=== PATIENT | female | born 1960 | race Two or more races ===

== ENCOUNTER 2019-05-02 08:15 | Emergency (ER) | payer BC ==
[2019-05-02] MEDS ORDERED: HYDROmorphone 1 MG/ML Syringe IVPUSH ONE (08:39)
[2019-05-02] MEDS ORDERED: Ondansetron 4 MG/2 ML SDV IVPUSH ONE (08:39)
--- NOTE | 2019-05-02 08:44 | EDM.PDOC ---
ED HPI GENERAL MEDICAL PROBLEM - General Chief Complaint: Upper Extremity Injury/Pain Stated Complaint: SLIPPED ON THE ICE Time Seen by Provider: 05/02/19 08:27 - History of Present Illness INITIAL COMMENTS - FREE TEXT/NARRATIVE: HISTORY AND PHYSICAL: History of present illness: Patient is a 58-year-old female who presents after slipping on the ice and falling onto her left wrist and complains of pain only in this area. She did not hit her head pass out or blackout and has no head neck or back pain and prior to these events she was in her usual state of good health. She said she was not dizzy or lightheaded but just lost her footing and slipped. She is right-hand dominant and has no right upper extremity or any lower extremity complaints. She has no proximal left forearm elbow or shoulder pain and no hand pain or finger pain and only pain at the wrist. She received fentanyl in route and is still complaining of pain. She has no numbness or tingling in her fingers but does not want to move them very much. Review of systems: As per history of present illness and below otherwise all systems reviewed and negative. Past medical history: As per history of present illness and as reviewed below otherwise noncontributory. Surgical history: As per history of present illness and as reviewed below otherwise noncontributory. Social history: No reported history of drug or alcohol abuse. Family history: As per history of present illness and as reviewed below otherwise noncontributory. Physical exam: general: Well-developed well-nourished female who is uncomfortable and crying and screaming in the ED but vital signs are noted by me HEENT: Atraumatic, normocephalic, pupils reactive, negative for conjunctival pallor or scleral icterus, mucous membranes moist, throat clear, neck supple, nontender, trachea midline. No midline step-offs tenderness defects of the cervical spine Lungs: Clear to auscultation, breath sounds equal bilaterally, chest nontender. Heart: S1S2, regular no overt murmurs Abdomen: Soft, nondistended, nontender. Negative for masses or hepatosplenomegaly. Negative for costovertebral tenderness. Pelvis: Stable nontender. Genitourinary: Deferred. Rectal: Deferred. Extremities: Atraumatic full range of motion of all extremities with the exception of the left wrist where there is a slight angulation in the dorsal direction but no gross malalignment and there is swelling and soft tissue changes at the wrist but there is no proximal forearm elbow shoulder or humerus pain discomfort defects or deformities and no distal hand or digit defects or deformities. Pulses are palpable and capillary refill is normal. With any manipulation of the wrist the patient is very uncomfortable. The legs are, negative for cords or calf pain. Neurovascular unremarkable. Neuro: Awake, alert, oriented. Cranial nerves II through XII unremarkable. Cerebellum unremarkable. Motor and sensory unremarkable throughout. Exam nonfocal. Diagnostics: X-ray left wrist Therapeutics: dilaudid Zofran short arm post mold and sling 0950: Dr Burden from [facility] in [facility] for orthopedics was contacted as we do not have orthopedic surgery for over 24 hours and that the x-rays were discussed with him. He feels that a short arm post mold and follow-up in his clinic is appropriate and I discussed that with the patient. She says she is not sure if she can go to [facility] tomorrow so we will also put her on our follow-up. Impression: Comminuted angulated distal radial fracture with ulnar styloid fracture Definitive disposition and diagnosis as appropriate pending reevaluation and review of above. left wrist Pain Score (Numeric/FACES): 10 - Related Data Allergies Allergy/AdvReac Type Severity Reaction Status Date / Time No Known Allergies Allergy Verified 05/02/19 08:26 Home Meds: Home Meds Lisinopril [Zestril] 05/02/19 [History] Past Medical History Cardiovascular History: Reports: Hypertension - Infectious Disease History Infectious Disease History: Reports: None Social & Family History - Family History Family Medical History: Noncontributory - Tobacco Use Smoking Status *Q: Never Smoker - Recreational Drug Use Recreational Drug Use: No Review of Systems - Review of Systems Review Of Systems: Comprehensive ROS is negative, except as noted in HPI. ED EXAM, GENERAL - Physical Exam Exam: See Below (see Dictation) Course - Vital Signs Last Recorded V/S: Last Vital Signs Temp 36.1 C 05/02/19 08:15 Pulse 79 05/02/19 08:15 Resp 18 05/02/19 08:15 BP 136/90 05/02/19 08:15 Pulse Ox 98 05/02/19 08:15 - Orders/Labs/Meds Orders: Active Orders 24 hr Category Date Time Status DME for Discharge [COMM] Stat Oth 05/02/19 09:59 Ordered Meds: Medications Discontinued Medications Generic Name Dose Route Start Last Admin Trade Name Pia PRN Reason Stop Dose Admin Hydromorphone HCl 1 mg 05/02/19 08:39 05/02/19 08:52 Dilaudid IVPUSH 05/02/19 08:40 1 mg ONETIME ONE Administration Ondansetron HCl 4 mg 05/02/19 08:39 05/02/19 08:53 Zofran IVPUSH 05/02/19 08:40 4 mg ONETIME ONE Administration Departure - Departure Time of Disposition: 10:01 Disposition: Home, Self-Care 01 Condition: Good Clinical Impression: Closed fracture of radius Qualifiers: Encounter type: initial encounter Radius location: distal Fracture morphology: unspecified fracture morphology Laterality: left Qualified Code(s): S52.502A - Unspecified fracture of the lower end of left radius, initial encounter for closed fracture - Discharge Information Referrals: PCP,Unobtain [Primary Care Provider] - Forms: ED Department Discharge Additional Instructions: The following information is given to patients seen in the emergency department who are being discharged to home. This information is to outline your options for follow-up care. We provide all patients seen in our emergency department with a follow-up referral. The need for follow-up, as well as the timing and circumstances, are variable depending upon the specifics of your emergency department visit. If you don't have a primary care physician on staff, we will provide you with a referral. We always advise you to contact your personal physician following an emergency department visit to inform them of the circumstance of the visit and for follow-up with them and/or the need for any referrals to a consulting specialist. The emergency department will also refer you to a specialist when appropriate. This referral assures that you have the opportunity for followup care with a specialist. All of these measure are taken in an effort to provide you with optimal care, which includes your followup. Under all circumstances we always encourage you to contact your private physician who remains a resource for coordinating your care. When calling for followup care, please make the office aware that this follow-up is from your recent emergency room visit. If for any reason you are refused follow-up, please contact the [facility] emergency department at and ask to speak to the emergency department charge nurse. MAURICIO Ames [facility] Specialty Care - Orthopedic Clinic Professional Building [address] [place] [address], [address] [place] [address] [facility] [address] [place] [address] Please follow-up with Dr. Burden [facility] in the orthopedics clinic as we discussed and leave the splint on until followed up tomorrow. Please call the clinic first thing in the morning to make that appointment and if you absolutely cannot make it to [facility] please call our clinic and schedule a follow-up appointment on Friday. Return to ER as needed and as discussed and please fill prescription for pain medications and take as needed and directed. Ice and elevate the area Sepsis Event Note - Evaluation Sepsis Screening Result: No Definite Risk - Focused Exam Vital Signs: Vital Signs Temp Pulse Resp BP Pulse Ox 05/02/19 08:15 36.1 C 79 18 136/90 98 Date Exam was Performed: 05/02/19 Time Exam was Performed: 09:59 - My Orders Last 24 Hours: My Active Orders 05/02/19 09:59 DME for Discharge [COMM] Stat - Assessment/Plan Last 24 Hours: My Active Orders 05/02/19 09:59 DME for Discharge [COMM] Stat
--- NOTE | 2019-05-02 09:00 | CR ---
Left wrist: 2 views of the left wrist were obtained. Comparison: No previous wrist study. Distal radial fracture is seen which is mildly comminuted. Posterior impaction and dorsal tilt of the distal radial articular margin is seen. Additional vertical fracture fragment seen within the epiphyseal fragment with articular extension. Slightly displaced ulnar styloid avulsion fracture is noted. Soft tissue swelling is seen. Impression: 1. Displaced and angulated distal radial fracture with mild comminution and articular extension. 2. Ulnar styloid avulsion fracture. 3. Soft tissue swelling. Diagnostic code #3 This report was dictated in Mountain Standard Time
== END 2019-05-02 10:22 | disposition home or self-care (01) ==
LOC: MW.ED 08:15
DX: S52.612A Displaced fracture of left ulna styloid process, initial encounter for closed fracture (principal); S52.502A Unspecified fracture of the lower end of left radius, initial encounter for closed fracture; I10 Essential (primary) hypertension; W00.0XXA Fall on same level due to ice and snow, initial encounter
CPT/HCPCS: 29125; 73110; 96374; 96375; 99284; J1170; J2405

== ENCOUNTER 2019-05-03 13:19 | Emergency (ER) | payer BC ==
--- NOTE | 2019-05-03 15:43 | EDM.PDOC ---
ED HPI GENERAL MEDICAL PROBLEM - General Chief Complaint: General Stated Complaint: LEFT WRIST BROKEN Time Seen by Provider: 05/03/19 15:10 Source of Information: Reports: Patient History Limitations: Reports: No Limitations - History of Present Illness INITIAL COMMENTS - FREE TEXT/NARRATIVE: HISTORY AND PHYSICAL: History of present illness: Patient is a 58-year-old female who presents to the ED today with concern of pain management. Patient was seen and evaluated in the ED yesterday and did have a angulated radial fracture. Patient states she did call and get an appointment with orthopedic but it is tomorrow morning at 8 in the morning. Patient states that she was given [place] 7.5/325 and has been taking these every 3-4 hours and not having her pain controlled. Patient denies any new trauma or injury or any other symptoms or concerns. Patient denies fever, chills, chest pain, shortness of breath, or cough. Denies headache, neck stiff ness, change in vision, syncope, or near syncope. Denies nausea, vomiting, abdominal pain, diarrhea, constipation, or dysuria. Has not noted any blood in urine or stool. Patient has been eating and drinking appropriately. Review of systems: As per history of present illness and below otherwise all systems reviewed and negative. Past medical history: As per history of present illness and as reviewed below otherwise noncontributory. Surgical history: As per history of present illness and as reviewed below otherwise noncontributory. Social history: See social history for further information Family history: As per history of present illness and as reviewed below otherwise noncontributory. Physical exam: General: Patient is alert, oriented, and in no acute distress. Patient sitting comfortably on exam table. HEENT: Atraumatic, normocephalic, pupils equal and reactive bilaterally, negative for conjunctival pallor or scleral icterus, mucous membranes moist, TMs normal bilaterally, throat clear, neck supple, nontender, trachea midline. No drooling or trismus noted. No meningeal signs. No hot potato voice noted. Lungs: Clear to auscultation, breath sounds equal bilaterally, chest nontender. Heart: S1S2, regular rate and rhythm without overt murmur Abdomen: Soft, nondistended, nontender. Negative for masses or hepatosplenomegaly. Negative for costovertebral tenderness. Pelvis: Stable nontender. Genitourinary: Deferred. Rectal: Deferred. Skin: Intact, warm, dry. No lesions or rashes noted. Extremities: Atraumatic, negative for cords or calf pain. Neurovascular unremarkable. There is a short arm splint placed on the left arm with arm in sling. Neuro: Awake, alert, oriented. Cranial nerves II through XII unremarkable. Cerebellum unremarkable. Motor and sensory unremarkable throughout. Exam nonfocal. Notes: Dr. Mckeon verbally involved in patient care. Discussed importance for follow-up with the orthopedic provider. Voices understanding and is agreeable to plan of care. Denies any further questions or concerns at this time. Diagnostics: None Therapeutics: None Prescription: [place] 10/325 (#10) Impression: Encounter for pain management Closed fracture of radius, left, subsequent encounter Plan: 1. Take medication as prescribed. Follow-up with the orthopedic provider as scheduled and as discussed. 2. Return to the ED as needed and as discussed. Definitive disposition and diagnosis as appropriate pending reevaluation and review of above. Left Wrist Pain Score (Numeric/FACES): 9 - Related Data Allergies Allergy/AdvReac Type Severity Reaction Status Date / Time No Known Allergies Allergy Verified 05/02/19 08:26 Home Meds: Home Meds Lisinopril [Zestril] 5 mg PO ASDIRECTED 05/02/19 [History] Acetaminophen/HYDROcodone [[place] 325-10 MG] 1 tab PO Q6H PRN #10 tab 05/03/19 [ Rx] Acetaminophen/HYDROcodone [[place] 325-7.5 MG] 1 tab PO Q4H PRN 05/03/19 [History] Past Medical History Cardiovascular History: Reports: Hypertension Musculoskeletal History: Reports: Fracture - Infectious Disease History Infectious Disease History: Reports: None Social & Family History - Family History Family Medical History: Noncontributory - Tobacco Use Smoking Status *Q: Never Smoker Second Hand Smoke Exposure: No - Caffeine Use Caffeine Use: Reports: None - Recreational Drug Use Recreational Drug Use: No ED ROS GENERAL - Review of Systems Review Of Systems: Comprehensive ROS is negative, except as noted in HPI. ED EXAM, GENERAL - Physical Exam Exam: See Below (see dictaton) Course - Vital Signs Last Recorded V/S: Last Vital Signs Temp 97.2 F 05/03/19 14:03 Pulse 68 01/27/20 14:03 Resp 16 05/03/19 14:03 BP 138/91 H 05/03/19 14:03 Pulse Ox 97 05/03/19 14:03 Departure - Departure Time of Disposition: 15:39 Disposition: Home, Self-Care 01 Clinical Impression: Encounter for pain management Closed fracture of radius Qualifiers: Encounter type: subsequent encounter Radius location: distal Fracture morphology: unspecified fracture morphology Laterality: left Fracture healing: with routine healing Qualified Code(s): S52.502D - Unspecified fracture of the lower end of left radius, subsequent encounter for closed fracture with routine healing - Discharge Information Prescriptions: Acetaminophen/HYDROcodone [[place] 325-10 MG] 1 tab PO Q6H PRN #10 tab PRN Reason: Pain (Severe 7-10) Referrals: PCP,None [Primary Care Provider] - Additional Instructions: The following information is given to patients seen in the emergency department who are being discharged to home. This information is to outline your options for follow-up care. We provide all patients seen in our emergency department with a follow-up referral. The need for follow-up, as well as the timing and circumstances, are variable depending upon the specifics of your emergency department visit. If you don't have a primary care physician on staff, we will provide you with a referral. We always advise you to contact your personal physician following an emergency department visit to inform them of the circumstance of the visit and for follow-up with them and/or the need for any referrals to a consulting specialist. The emergency department will also refer you to a specialist when appropriate. This referral assures that you have the opportunity for follow-up care with a specialist. All of these measure are taken in an effort to provide you with optimal care, which includes your follow-up. Under all circumstances we always encourage you to contact your private physician who remains a resource for coordinating your care. When calling for follow-up care, please make the office aware that this follow-up is from your recent emergency room visit. If for any reason you are refused follow-up, please contact the [facility] Emergency Department at and asked to speak to the emergency department charge nurse. [facility] Primary Care [address] [place] [id number] [facility] [address] [place] [address] 1. Take medication as prescribed. Follow-up with the orthopedic provider as scheduled and as discussed. 2. Return to the ED as needed and as discussed. Sepsis Event Note - Evaluation Sepsis Screening Result: No Definite Risk - Focused Exam Vital Signs: Vital Signs Temp Pulse Resp BP Pulse Ox 05/03/19 14:03 97.2 F 68 16 138/91 H 97 Date Exam was Performed: 05/03/19 Time Exam was Performed: 15:38
== END 2019-05-03 15:51 | disposition home or self-care (01) ==
LOC: MW.ED 13:19
DX: S52.502A Unspecified fracture of the lower end of left radius, initial encounter for closed fracture (principal); I10 Essential (primary) hypertension; Z79.899 Other long term (current) drug therapy; X58.XXXA Exposure to other specified factors, initial encounter
CPT/HCPCS: 99282; 99283

== ENCOUNTER 2019-05-05 09:51 | Day surgery (SDC) | payer BC ==
--- NOTE | 2019-05-05 10:49 | PCM.PREANE ---
Preanesthetic Assessment - Anesthesia/Transfusion/Family Hx Anesthesia History: Prior Anesthesia Without Reaction Family History of Anesthesia Reaction: No Transfusion History: No Prior Transfusion(s) - Review of Systems General: No Symptoms Pulmonary: No Symptoms Cardiovascular: No Symptoms Gastrointestinal: No Symptoms Neurological: No Symptoms Other: Reports: None - Physical Assessment NPO Status Date: 05/04/19 Height: 5 ft 1 in Weight: 75.75 kg ASA Class: 2 Mental Status: Alert & Oriented x3 Airway Class: Mallampati = 2 Dentition: Reports: Dentures (upper, full) ROM/Head Extension: Full Lungs: Clear to Auscultation, Normal Respiratory Effort Cardiovascular: Regular Rate, Regular Rhythm - Allergies Allergies/Adverse Reactions: Allergies Allergy/AdvReac Type Severity Reaction Status Date / Time No Known Allergies Allergy Verified 05/04/19 17:22 - Blood Blood Available: No - Anesthesia Plan Pre-Op Medication Ordered: None - Acknowledgements Anesthesia Type Planned: General Anesthesia Pt an Appropriate Candidate for the Planned Anesthesia: Yes Alternatives and Risks of Anesthesia Discussed w Pt/Guardian: Yes Pt/Guardian Understands and Agrees with Anesthesia Plan: Yes Additional Comments: pmh: htn, plan: ga/LMA PreAnesthesia Questionnaire HEENT History: Reports: Other (See Below) Other HEENT History: uses glasses for driving Cardiovascular 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: Reports: Hypertension 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: Musculoskeletal History: Reports: Fracture Endocrine/Metabolic History: Reports: Obesity/BMI 30+ - Infectious Disease History Infectious Disease History: Reports: None - Past Surgical History Head Surgeries/Procedures: Reports: None HEENT Surgical History: Reports: Oral Surgery Other HEENT Surgeries/Procedures: has 1 upper dental implant - SUBSTANCE USE Smoking Status *Q: Never Smoker Recreational Drug Use History: No - HOME MEDS Home Medications: Home Meds Lisinopril [Zestril] 10 mg PO QAM 05/02/19 [History] oxyCODONE HCl/Acetaminophen [Percocet 5-325 mg Tablet] 1 each PO TID #21 tablet 05/05/19 [Rx]
[2019-05-05] MEDS: fentaNYL 100 MCG/2 ML SDV IVPUSH PRN ×4 (10:57→16:14)
[2019-05-05] MEDS ORDERED: Lactated Ringers 1,000 ML IV SCH ×2 (11:45→18:15)
[2019-05-05] MEDS ORDERED: Midazolam 1 MG/ML 2 ML SDV ONE (12:56)
[2019-05-05] MEDS ORDERED: Propofol 200 MG/20 ML SDV ONE (12:56)
[2019-05-05] MEDS ORDERED: fentaNYL 100 MCG/2 ML SDV ONE (12:56)
[2019-05-05] MEDS ORDERED: Ondansetron 4 MG/2 ML SDV ONE (12:58)
[2019-05-05] MEDS ORDERED: Glycopyrrolate 0.2 MG/ML SDV ONE (12:58)
[2019-05-05] MEDS ORDERED: Lidocaine 2% 5 ML SDV ONE (12:58)
[2019-05-05] MEDS ORDERED: Ketorolac 30 MG/ML SDV ONE (12:58)
[2019-05-05] MEDS ORDERED: ceFAZolin 1 GM Vial ONE (13:37)
[2019-05-05] MEDS ORDERED: Bupivacaine 0.5% 30 ML SDV ONE (14:12)
[2019-05-05] MEDS ORDERED: Phenylephrine/Normal Saline 100 MCG/ML 10 ML Syringe ONE (15:05)
--- NOTE | 2019-05-05 15:18 | PCM.OPNOTE ---
- General Post-Op/Procedure Note Date of Surgery/Procedure: 05/05/19 Operative Procedure(s): orif left distal radius Pre Op Diagnosis: left distal radius fracture closed Post-Op Diagnosis: Same Anesthesia Technique: General LMA Primary Surgeon: Stewart Best Anesthesia Provider: Star Overton Rayon Winder: Caryl Cho EBL in mLs: 25 Complications: None Condition: Good
[2019-05-05] MEDS: HYDROmorphone 2 MG/ML Syringe IVPUSH ONE ×5 (15:56→16:27)
--- NOTE | 2019-05-05 16:54 | PCM.POSTAN ---
POST ANESTHESIA ASSESSMENT - MENTAL STATUS Mental Status: Alert, Oriented - VITAL SIGNS Vital Signs: Last Vital Signs Temp 97.9 F 05/05/19 15:39 Pulse 62 05/05/19 16:29 Resp 13 05/05/19 16:29 BP 139/72 05/05/19 16:29 Pulse Ox 100 05/05/19 16:29 - RESPIRATORY Respiratory Status: Respiratory Rate WNL, Airway Patent, O2 Saturation Stable - CARDIOVASCULAR CV Status: Pulse Rate WNL, Blood Pressure Stable - GASTROINTESTINAL GI Status: No Symptoms - POST OP HYDRATION Hydration Status: Adequate & Stable
--- NOTE | 2019-05-05 17:59 | PCM48HPAN ---
Post Anesthesia Note - EVALUATION WITHIN 48HRS OF ANESTHETIC Vital Signs in Normal Range: Yes Patient Participated in Evaluation: Yes Respiratory Function Stable: Yes Airway Patent: Yes Cardiovascular Function Stable: Yes Hydration Status Stable: Yes Pain Control Satisfactory: Yes Nausea and Vomiting Control Satisfactory: Yes Mental Status Recovered: Yes Vital Signs: Last Vital Signs Temp 36.1 C 05/05/19 16:45 Pulse 76 05/05/19 17:00 Resp 14 05/05/19 17:00 BP 154/76 H 05/05/19 17:00 Pulse Ox 100 05/05/19 17:00 - COMMENTS/OBSERVATIONS Free Text/Narrative:: Received report from Elzbieta the patient's phase 2 RN. That the patient had sats around 90%. We will observe the patient for 23 hours with continuous pulse oximetry. This was discussed with the patient and the patient's surgeon is aware.
--- NOTE | 2019-05-05 18:42 | OR ---
SURGEON: Stewart Best DATE OF PROCEDURE: 05/05/2019 PREOPERATIVE DIAGNOSIS: Left distal radius fracture, closed. POSTOPERATIVE DIAGNOSIS: Left distal radius fracture, closed. PROCEDURES: 1. Open reduction and internal fixation, left distal radius. 2. Application of short-arm splint. PRIMARY SURGEON: Stewart Best DO. RESTORATION TECHNICIAN: ILANA Pruitt. ROLE OF RESTORATION TECHNICIAN: Nurse practitioner, ILANA Pruitt, played an essential role in assisting in this case, helping to position the patient, retract structures as needed, as well as suturing and cutting sutures as indicated. Her presence improved patient's safety and decreased operative time. ANESTHESIA: General LMA; Star Hoang CRNA. FLUID: Lactated Ringer's solution. ESTIMATED BLOOD LOSS: 20 mL. COMPLICATION: None. SPECIMEN: None. DISCHARGE DISPOSITION: Stable to PACU. HISTORY AND INDICATIONS FOR THE PROCEDURE: The patient was seen preoperatively in the clinic. She had fallen on her outstretched hand. She was seen in the emergency department and then followed up in clinic. We are going to do a short-arm splint. Preoperative imaging confirmed the above-mentioned diagnosis. Risks and goals of the procedure were explained to the patient and informed consent was obtained. DETAILS OF PROCEDURE: The patient was seen preoperatively by myself and the Anesthesia staff in the preoperative holding area where the operative site was marked. She was brought to the operative suite by Anesthesia staff where general anesthesia was administered. A well-padded tourniquet was placed on the left arm. The left upper extremity was then prepped and draped in a sterile manner. Time-out was called identifying the correct patient, the correct procedure, the correct site, and that antibiotics had been given within appropriate period of time. The left upper extremity was exsanguinated. Tourniquet was raised to 200 mmHg. An incision was made over the flexor carpi radialis tendon just proximal to 3rd distal, the joint extending proximally about 12 cm. Bleeding was controlled with Bovie electrocautery. The FCR tendon was identified. I went through the volar sheath with a 15 blade, moved the tendon radially to protect the radial artery, and then went through the volar aspect of the sheath. The pronator was then identified. I went through the radial border of the pronator and reflected it and elevated it off the radius. I then reduced the fracture. I did use a [place] to do this. This was done quite easily and then confirmed with fluoroscopy. K-wire additionally placed through the shaft. I then placed my plate on it. I placed two K-wires through the plate and then confirmed this was in good position with fluoroscopy. I then went through the oval hole and then one of the distal holes to bring the distal radius down to the plate. I then put these screws and confirmed good position. I then drilled and filled the remainder of most of the screws, except I did replace the second most ulnar one on the distal row as it looked like it might be close to the joint and then one on the most ulnar one. I then took final films, copiously irrigated with saline, and then had my assist close subcutaneously with 2-0 Vicryl interrupted sutures followed by 3-0 nylon horizontal mattress sutures and then dressed it with Betadine soaked Adaptic, fluffs, Webril, and a volar splint. The patient was allowed to awaken from general anesthesia and taken to the PACU in stable condition. [id number] / MODL /[id number]
[2019-05-05] MEDS: Acetaminophen/oxyCODONE 325-5 MG Tab PO PRN (20:06)
[2019-05-06] MEDS: Acetaminophen/oxyCODONE 325-5 MG Tab PO PRN (01:30)
[2019-05-06] MEDS ORDERED: hydrOXYzine Pamoate 25 MG Cap PO ONE (01:33)
[2019-05-06] MEDS ORDERED: Acetaminophen/HYDROcodone 325-10 MG Tab PO ONE (06:59)
--- NOTE | 2019-05-06 07:28 | PCM48HPAN ---
Post Anesthesia Note - EVALUATION WITHIN 48HRS OF ANESTHETIC Vital Signs in Normal Range: Yes Patient Participated in Evaluation: Yes Respiratory Function Stable: Yes Airway Patent: Yes Cardiovascular Function Stable: Yes Hydration Status Stable: Yes Pain Control Satisfactory: No Nausea and Vomiting Control Satisfactory: Yes Mental Status Recovered: Yes Vital Signs: Last Vital Signs Temp 36.6 C 05/06/19 04:00 Pulse 72 05/06/19 04:00 Resp 19 05/06/19 04:00 BP 155/84 H 05/06/19 04:00 Pulse Ox 93 L 05/06/19 04:00 - COMMENTS/OBSERVATIONS Free Text/Narrative:: I was informed by the patient's RN that she has been complaining of pain, and the patient mentioned that PERCOCET medications do not help. After I received report from the Nurse, I observed the patient prior to entering the room. She was on the phone talking, and there were no physical signs of pain such as grimacing, moaning, holding her left arm. Once, I entered the room and greeted her she immediately starting moaning and holding her left arm complaining of pain. The patient states that percocet does not control her pain , but [place] works better. I explained to the Nurses that there are some people who are poor metabolizers of certain pain medications and due to this fact I recommended po Toradol for pain control or [place]. The Nurse stated that she would discuss these options with Dr. Roshni Best
[2019-05-06] MEDS ORDERED: Acetaminophen/HYDROcodone 325-10 MG Tab PO PRN (08:56)
[2019-05-06] MEDS ORDERED: Ibuprofen 800 MG Tab PO PRN (08:56)
--- NOTE | 2019-05-06 09:46 | PCM.SURGPN ---
- General Info Date of Service: 05/06/19 (0845) Date of Surgery/Procedure: 05/05/19 POD#: 1 Post-Op Diagnosis: s/p Left wrist ORIF Admission Diagnosis/Problem: Pain in wrist Functional Status: Reports: Pain Controlled (Reports pain is better during examination than it was last night, better after receiving [place] ), Tolerating Diet, Urinating - Review of Systems General: Reports: No Symptoms Pulmonary: Reports: No Symptoms Cardiovascular: Reports: No Symptoms Gastrointestinal: Denies: Nausea, Vomiting Musculoskeletal: Reports: Joint Pain (acute post-surgical left wrist pain) Neurological: Reports: No Symptoms Psychiatric: Reports: No Symptoms - Patient Data Vitals - Most Recent: Last Vital Signs Temp 36.4 C 05/06/19 07:46 Pulse 79 05/06/19 07:46 Resp 20 05/06/19 07:46 BP 147/94 H 05/06/19 07:46 Pulse Ox 98 05/06/19 07:46 Weight - Most Recent: 75.75 kg I&O - Last 24 Hours: Intake & Output 05/05/19 05/06/19 05/06/19 22:59 06:59 14:59 Intake Total 1200 1275 Output Total 1000 Balance 1200 275 Med Orders - Current: Current Medications Hydrocodone Bitart/Acetaminophen ([place] 325-10 Mg) 1 tab PO Q6H PRN PRN Reason: Pain Lactated Ringer's (Ringers, Lactated) 1,000 mls @ 75 mls/hr IV ASDIRECTED LUC Last Admin: 05/05/19 22:27 Dose: 75 mls/hr Ibuprofen (Motrin) 800 mg PO Q6H PRN PRN Reason: Pain Last Admin: 05/06/19 09:29 Dose: 800 mg Discontinued Medications Hydrocodone Bitart/Acetaminophen ([place] 325-10 Mg) 1 tab PO ONETIME ONE Stop: 05/06/19 07:00 Last Admin: 05/06/19 07:18 Dose: 1 tab Bupivacaine HCl (Marcaine 0.5%) Confirm Administered Dose 30 ml .ROUTE .STK-MED ONE Stop: 05/05/19 14:13 Cefazolin Sodium (Ancef) Confirm Administered Dose 2 gm .ROUTE .STK-MED ONE Stop: 05/05/19 13:38 Fentanyl (Sublimaze) 50 mcg IVPUSH Q5M PRN PRN Reason: Pain Last Admin: 05/05/19 14:10 Dose: 50 mcg Fentanyl (Sublimaze) Confirm Administered Dose 100 mcg .ROUTE .STK-MED ONE Stop: 05/05/19 12:57 Fentanyl (Sublimaze) 50 mcg IVPUSH Q5M PRN PRN Reason: Pain Last Admin: 05/05/19 16:14 Dose: 50 mcg Glycopyrrolate (Robinul) Confirm Administered Dose 0.2 mg .ROUTE .STK-MED ONE Stop: 05/05/19 12:59 Hydromorphone HCl (Dilaudid) 2 mg IVPUSH ONETIME ONE Stop: 05/05/19 15:53 Last Admin: 05/05/19 16:27 Dose: 0.4 mg Hydroxyzine Pamoate (Vistaril) 25 mg PO ONETIME ONE Stop: 05/06/19 01:34 Last Admin: 05/06/19 01:50 Dose: 25 mg Lactated Ringer's (Ringers, Lactated) 1,000 mls @ 125 mls/hr IV ASDIRECTED LUC Last Admin: 05/05/19 10:28 Dose: 125 mls/hr Ketorolac Tromethamine (Toradol) Confirm Administered Dose 30 mg .ROUTE .STK- MED ONE Stop: 05/05/19 12:59 Lidocaine (Xylocaine-Mpf 2%) Confirm Administered Dose 5 ml .ROUTE .STK-MED ONE Stop: 05/05/19 12:59 Midazolam HCl (Versed 1 Mg/Ml) Confirm Administered Dose 2 mg .ROUTE .STK-MED ONE Stop: 05/05/19 12:57 Ondansetron HCl (Zofran) Confirm Administered Dose 4 mg .ROUTE .STK-MED ONE Stop: 05/05/19 12:59 Oxycodone/Acetaminophen (Percocet 325-5 Mg) 1 tab PO Q6H PRN PRN Reason: Pain Last Admin: 05/06/19 01:30 Dose: 1 tab Phenylephrine HCl (Phenylephrine In Ns 100 Mcg/Ml) Confirm Administered Dose 1 mg .ROUTE .STK-MED ONE Stop: 05/05/19 15:06 Propofol (Diprivan 20 Ml) Confirm Administered Dose 200 mg .ROUTE .STK-MED ONE Stop: 05/05/19 12:57 - Exam Wound/Incisions: Dressing Dry and Intact General: Alert, Oriented, Cooperative HEENT: Pupils Equal Lungs: Normal Respiratory Effort Extremities: Other (Capillary refill to fingers >2 seconds. Fingers warm to touch. Sensation grossly intact to fingers. Actively wiggling fingers. ) Neurological: Normal Speech Psy/Mental Status: Alert, Normal Affect, Normal Mood Physical Findings Comment:: splint intact to left wrist Sepsis Event Note - Evaluation Sepsis Screening Result: No Definite Risk - Focused Exam Vital Signs: Vital Signs Temp Pulse Resp BP BP Pulse Ox 05/06/19 07:46 36.4 C 79 20 147/94 H 98 05/06/19 04:00 36.6 C 72 19 155/84 H 93 L 05/06/19 00:00 36.6 C 67 16 106/72 96 05/05/19 23:30 65 117/68 96 05/05/19 23:00 65 17 113/70 97 05/05/19 22:30 64 117/71 95 05/05/19 22:00 63 16 120/67 95 Date Exam was Performed: 05/06/19 Time Exam was Performed: 09:40 - Problem List Review Problem List Initiated/Reviewed/Updated: Yes - My Orders Last 24 Hours: Active Orders 24 hr Category Date Time Status Admission Status [Patient Status] [ADT] Routine ADT 05/05/19 18:00 Active Antiembolic Devices [RC] PER UNIT ROUTINE Care 05/05/19 18:10 Active Cooling Warming Measures [RC] ASDIRECTED Care 05/05/19 18:10 Active Overnight Pulse Oximetry [RC] Click to Edit Care 05/05/19 18:10 Active Oxygen Therapy [RC] ASDIRECTED Care 05/05/19 18:07 Active RT Incentive Spirometry [RC] Q2HWA Care 05/05/19 18:07 Active Ready for Discharge [RC] PER UNIT ROUTINE Care 05/05/19 15:38 Active Regular Diet [DIET] Diet 05/05/19 Dinner Active Acetaminophen/HYDROcodone [[place] 325-10 MG] Med 05/06/19 08:56 Active 1 tab PO Q6H PRN Ibuprofen [Motrin] Med 05/06/19 08:56 Active 800 mg PO Q6H PRN Lactated Ringers [Ringers, Lactated] 1,000 ml Med 05/05/19 18:15 Active IV ASDIRECTED Ice Therapy [OM.PC] Routine Oth 05/05/19 18:07 Ordered Pulse Oximetry Continuous Monitoring [OM.PC] Routine Oth 05/05/19 18:07 Ordered Sequential Compression Device [OM.PC] Routine Oth 05/05/19 18:07 Ordered Code Status [Resuscitation Status] Routine Resus Stat 05/05/19 18:07 Ordered Medication Orders Hydrocodone Bitart/Acetaminophen ([place] 325-10 Mg) 1 tab PO Q6H PRN PRN Reason: Pain Lactated Ringer's (Ringers, Lactated) 1,000 mls @ 75 mls/hr IV ASDIRECTED LUC Last Admin: 05/05/19 22:27 Dose: 75 mls/hr Ibuprofen (Motrin) 800 mg PO Q6H PRN PRN Reason: Pain Last Admin: 05/06/19 09:29 Dose: 800 mg - Assessment Assessment (Free Text/Narrative):: 1) s/p Left wrist ORIF 2) acute post-surgical pain 3) low O2 sats in PACU (resolved) - Plan Plan (Free Text/Narrative):: Pt admitted overnight for observation d/t low O2 sats (averaging 90% in PACU). VS with O2 sats >90% overnight. Additionally, she had acute pain not controlled with Percocet 5/325mg. When visiting with pt, she states she received better pain control with hydrocodone/acetaminophen, and showed me a bottle that she received from ER visit. Just prior to assessment, she received [place] and states her pain is tolerable. Will change Rx from Percocet to [place], and add Ibuprofen 800mg q6h prn. Neurovascular exam WNL. Discussed need to diligently elevate extremity to minimize swelling. She inquired about when she could return to work. Note written for no work until follow up appt in visit in 2 weeks. Magdalena will be ready for discharge today.
== END 2019-05-06 10:35 | disposition home or self-care (01) ==
LOC: MW.SDS 09:51 → MW.ICU 17:48 → MW.SDS 05-06 10:35
PROVIDERS: ATTEND Orthopaedic Surgery
DX: S52.502A Unspecified fracture of the lower end of left radius, initial encounter for closed fracture (principal); I10 Essential (primary) hypertension; E66.9 Obesity, unspecified; Z68.31 Body mass index [BMI] 31.0-31.9, adult; W00.0XXA Fall on same level due to ice and snow, initial encounter; Z79.899 Other long term (current) drug therapy
CPT/HCPCS: 25607; A9270; J0690; J1170; J1885; J2001; J2250; J2370; J2405; J2704; J3010; J3490; J7120; 01830

== ENCOUNTER 2021-01-21 20:52 | Inpatient (IN) | payer SELFPAY ==
--- NOTE | 2021-01-21 23:24 | CR ---
HISTORY: Cough. COVID infection. TECHNIQUE: Portable frontal view the chest. COMPARISON: Chest x-ray 06/30/2019. FINDINGS: Mild atelectasis in the lower lungs bilaterally. Mild patchy airspace consolidation bilaterally. No moderate or large pleural effusion. No pneumothorax. Cardiomediastinal silhouette is unremarkable for technique. IMPRESSION: Multifocal bilateral airspace disease likely from pneumonia. Dictated by Christopher Capellan MD @ 01/21/2021 11:22:45 PM (Electronically Signed)
--- NOTE | 2021-01-21 23:34 | EDM.PDOC ---
ED HPI GENERAL MEDICAL PROBLEM - General Chief Complaint: Respiratory Problem Stated Complaint: DIFFICULTY BREATHING Time Seen by Provider: 01/21/21 21:46 - History of Present Illness INITIAL COMMENTS - FREE TEXT/NARRATIVE: HISTORY AND PHYSICAL: History of present illness: This is a 60-year-old female with a history of hypertension who was recently diagnosed 4 days ago with coronavirus after having symptoms for approximately 1 week now. Patient presents to the ED secondary to significant shortness of breath and pain with coughing. Patient reports that she had no fevers, shakes, chills. No nausea, vomiting, diarrhea. Patient reports that she did have 1-2 loose bowel movement over the last 24 hours. Patient reports of occasional white productive cough with pain with coughing. Patient reports that she had increasing shortness of breath over the last several days. Patient denies any swelling or discomfort to her calves. Patient reports that she was tested here and was positive and she has an email stating that she was Covid positive although I am unable to find any records in the hospital of her positive test results she did show me a report in her email. Review of systems: As per history of present illness and below otherwise all systems reviewed and negative. Past medical history: As per history of present illness and as reviewed below otherwise noncontributory. Surgical history: As per history of present illness and as reviewed below otherwise noncontributory. Social history: No reported history of drug abuse. Family history: As per history of present illness and as reviewed below otherwise noncontributory. Physical exam: This patient was seen and evaluated during the 2019 SARS-CoV-2 novel coronavirus pandemic period. Community viral transmission is ongoing at time of this [facility] and the emergency department is operating under pandemic response procedures. Constitutional: Patient is oriented to person, place, and time. Appears well- developed and well-nourished. No distress. HEENT: Moist mucous membranes Head: Normocephalic and atraumatic Eyes: Right eye exhibits no discharge. Left eye exhibits no discharge. No scleral icterus Neck: Normal range of motion. No tracheal deviation present. Cardiovascular: Normal rate and regular rhythm. Pulmonary: Effort normal, no respiratory distress. Abdominal: No distention Musculoskeletal: Normal range of motion Neurologic: Alert and oriented to person, place and time. Skin: [place], warm and dry. Psychiatric: Normal mood and affect. Behavior is normal. Judgment and thought content normal. Nursing note and vital signs have been reviewed Patient's lung exam reveals diffuse expiratory wheezing and rales bilaterally. Patient is tachypneic in the ED on room air. Patient has no calf tenderness or swelling. Patient has a negative Homans' sign. Patient has no JVD. Diagnostics: Chest x-ray: Multifocal bilateral airspace disease likely from pneumonia Pulse ox 97 to 99% on 5 L nasal cannula. 84% on room air Therapeutics: Zithromax 500 mg p.o. followed by Doris Guzman/Ultram for pain Assessment and plan: This is a 60-year-old female with a history significant for coronavirus infection that was diagnosed 4 days ago and symptoms started 7 days ago. Upon arrival to the ED, the patient was noted to be hypoxic with a pulse ox of 87% on room air. Patient's oxygen level improved with 5 L to 97%. Patient's chest x- ray reveals multifocal bilateral airspace disease consistent with Covid pneumonia. Patient will need admission to the hospital for hypoxia and treatment with remdesivir/Decadron. Patient was given a dose of Zithromax p.o. in the ED initially when it was felt that the patient may be stable for discharge to home however after removing the patient's nasal cannula O2 her oxygen level dropped to 84 to 86% with significant dyspnea. Patient has not had her coronavirus vaccination. Definitive disposition and diagnosis as appropriate pending reevaluation and review of above. - Related Data Allergies Allergy/AdvReac Type Severity Reaction Status Date / Time No Known Allergies Allergy Verified 01/22/21 01:56 Home Meds: Home Meds lisinopriL [Zestril] 10 mg PO QAM 05/02/19 [History] Acetaminophen/HYDROcodone [[place] 325-10 MG] 1 tab PO Q6H PRN #30 tablet 05/06/19 [Rx] Ibuprofen [Motrin] 800 mg PO Q6H PRN #40 tablet 05/06/19 [Rx] Past Medical History HEENT History: Reports: Other (See Below) Other HEENT History: uses glasses for driving Cardiovascular History: Reports: Hypertension [employer] History: Reports: Musculoskeletal History: Reports: Fracture Endocrine/Metabolic History: Reports: Obesity/BMI 30+ - Infectious Disease History Infectious Disease History: Reports: None - Past Surgical History Head Surgeries/Procedures: Reports: None HEENT Surgical History: Reports: Oral Surgery Other HEENT Surgeries/Procedures: has 1 upper dental implant Social & Family History - Family History Family Medical History: No Pertinent Family History - Tobacco Use Second Hand Smoke Exposure: No - Caffeine Use Caffeine Use: Reports: None - Recreational Drug Use Recreational Drug Use: No ED ROS GENERAL - Review of Systems Review Of Systems: See Below ED EXAM, GENERAL - Physical Exam Exam: See Below #1 Interpretation EKG Interpretation Comments: January 22, 2021 12:35 AM EKG: As interpreted by ER physician: Edy: Nonspecific ST-T wave abnormalities Normal axis No evidence of ST elevation OK Normal sinus rhythm heart rate of 67 Course - Vital Signs Last Recorded V/S: Last Vital Signs Temp 95.4 F L 01/22/21 01:48 Pulse 73 01/22/21 01:48 Resp 18 01/22/21 01:48 BP 135/92 H 01/22/21 01:48 Pulse Ox 94 L 01/22/21 01:48 - Orders/Labs/Meds Orders: Active Orders 24 hr Category Date Time Status Patient Status [ADT] Routine ADT 01/22/21 00:17 Active BILIRUBIN DIRECT [CHEM] DAILY Lab 01/23/21 00:15 Ordered BILIRUBIN DIRECT [CHEM] DAILY Lab 01/24/21 00:15 Ordered BILIRUBIN DIRECT [CHEM] DAILY Lab 01/25/21 00:15 Ordered BILIRUBIN DIRECT [CHEM] DAILY Lab 01/26/21 00:15 Ordered Medication Orders Acetaminophen (Acetaminophen 325 Mg Tab) 650 mg PO Q4H PRN PRN Reason: Pain/Fever Albuterol/Ipratropium (Albuterol/Ipratropium 3.0-0.5 Mg/3 Ml Neb Soln) 3 ml NEB Q4HRRT PRN PRN Reason: Shortness of Breath Albuterol/Ipratropium (Albuterol/Ipratropium 4 Gm Inhalation [place]) 0 gm INH Q4H LUC Last Admin: 01/22/21 02:05 Dose: 1 puff Documented by: KARLEE Dexamethasone (Dexamethasone 4 Mg Tab) 6 mg PO DAILY [facility] Enoxaparin Sodium (Enoxaparin 40 Mg/0.4 Ml Syringe) 40 mg SUBCUT DAILY LUC Guaifenesin/Dextromethorphan (Guaifenesin/Dextromethorphan 100-10 Mg/5 Ml Soln 10 Ml Cup) 10 ml PO Q4H PRN PRN Reason: Cough Remdesivir 100 mg/ Sodium (Chloride) 100 mls @ 100 mls/hr IV Q24H LUC Stop: 01/25/21 17:59 Pantoprazole Sodium 40 mg/ (Sodium Chloride) 10 mls @ 300 mls/hr IV DAILY LUC Morphine Sulfate (Morphine 2 Mg/Ml Syringe) 1 mg IVPUSH Q6H PRN PRN Reason: Pain Ondansetron HCl (Ondansetron 4 Mg/2 Ml Sdv) 4 mg IVPUSH Q4H PRN PRN Reason: Nausea/Vomiting Sodium Chloride (Sodium Chloride 0.9% 10 Ml Syringe) 10 ml FLUSH ASDIRECTED PRN PRN Reason: Keep Vein Open Last Admin: 01/22/21 00:36 Dose: 10 ml Documented by: LEONID Sodium Chloride (Sodium Chloride 0.9% 2.5 Ml Syringe) 2.5 ml FLUSH ASDIRECTED PRN PRN Reason: Keep Vein Open Last Admin: 01/22/21 00:36 Dose: 2.5 ml Documented by: LEONID Labs: Laboratory Tests 01/21/21 01/21/21 01/22/21 Range/Units 21:30 21:30 00:15 WBC 7.84 (4.0-11.0) K/uL RBC 4.50 (4.30-5.90) M/uL Hgb 13.8 (12.0-16.0) g/dL Hct 40.9 (36.0-46.0) % MCV 90.9 (80.0-98.0) fL MCH 30.7 (27.0-32.0) pg MCHC 33.7 (31.0-37.0) g/dL RDW Std Deviation 44.2 (28.0-62.0) fl RDW Coeff of Arely 13 (11.0-15.0) % Plt Count 227 (150-400) K/uL MPV 12.70 H (7.40-12.00) fL Neut % (Auto) 65.8 (48.0-80.0) % Lymph % (Auto) 24.4 (16.0-40.0) % Mcleod % (Auto) 9.2 (0.0-15.0) % Eos % (Auto) 0.3 (0.0-7.0) % Baso % (Auto) 0.3 (0.0-1.5) % Neut # (Auto) 5.2 (1.4-5.7) K/uL Lymph # (Auto) 1.9 (0.6-2.4) K/uL Mcleod # (Auto) 0.7 (0.0-0.8) K/uL Eos # (Auto) 0.0 (0.0-0.7) K/uL Baso # (Auto) 0.0 (0.0-0.1) K/uL Nucleated RBC % 0.0 /100WBC Nucleated RBCs # 0 K/uL Sodium 137 (136-145) mmol/L Potassium 4.2 (3.5-5.1) mmol/L Chloride 99 (98-107) mmol/L Carbon Dioxide 26.0 (21.0-32.0) mmol/L BUN 13 (7.0-18.0) mg/dL Creatinine 0.8 (0.6-1.0) mg/dL Est Cr Clr Drug Dosing 57.84 mL/min Estimated GFR (MDRD) > 60.0 ml/min Glucose 100 (74-106) mg/dL Calcium 8.3 L (8.5-10.1) mg/dL Total Bilirubin 0.6 (0.2-1.0) mg/dL Direct Bilirubin 0.10 (0.0-0.5) mg/dL AST 60 H (15-37) IU/L ALT 50 (14-63) IU/L Alkaline Phosphatase 67 (46-116) U/L Total Protein 7.5 (6.4-8.2) g/dL Albumin 2.9 L (3.4-5.0) g/dL Globulin 4.6 H (2.6-4.0) g/dL Albumin/Globulin Ratio 0.6 L (0.9-1.6) SARS-CoV-2 RNA (ROCÍO) POSITIVE H (NEGATIVE) Meds: Medications Generic Name Dose Route Start Last Admin Trade Name Freq PRN Reason Stop Dose Admin Acetaminophen 650 mg 01/22/21 01:41 Acetaminophen 325 Mg Tab PO Q4H PRN Pain/Fever Albuterol/Ipratropium 3 ml 01/22/21 01:35 Albuterol/Ipratropium 3.0-0.5 Mg/3 Ml Neb Soln NEB Q4HRRT PRN Shortness of Breath Albuterol/Ipratropium 0 gm 01/22/21 01:45 01/22/21 02:05 Albuterol/Ipratropium 4 Gm Inhalation [place] INH 1 puff Q4H LUC Administration Dexamethasone 6 mg 01/22/21 09:00 Dexamethasone 4 Mg Tab PO DAILY [facility] Enoxaparin Sodium 40 mg 01/22/21 09:00 Enoxaparin 40 Mg/0.4 Ml Syringe SUBCUT DAILY [facility] Guaifenesin/Dextromethorphan 10 ml 01/22/21 01:39 Guaifenesin/Dextromethorphan 100-10 Mg/5 Ml Soln 10 Ml Cup PO Q4H PRN Cough Remdesivir 100 mg/ Sodium 100 mls @ 100 mls/hr 01/22/21 17:00 Chloride IV 01/25/21 17:59 Q24H [facility] Pantoprazole Sodium 40 mg/ 10 mls @ 300 mls/hr 01/22/21 09:00 Sodium Chloride IV DAILY [facility] Morphine Sulfate 1 mg 01/22/21 01:41 Morphine 2 Mg/Ml Syringe IVPUSH Q6H PRN Pain Ondansetron HCl 4 mg 01/22/21 01:40 Ondansetron 4 Mg/2 Ml Sdv IVPUSH Q4H PRN Nausea/Vomiting Sodium Chloride 10 ml 01/22/21 00:18 01/22/21 00:36 Sodium Chloride 0.9% 10 Ml Syringe FLUSH 10 ml ASDIRECTED PRN Administration Keep Vein Open Sodium Chloride 2.5 ml 01/22/21 00:18 01/22/21 00:36 Sodium Chloride 0.9% 2.5 Ml Syringe FLUSH 2.5 ml ASDIRECTED PRN Administration Keep Vein Open Discontinued Medications Generic Name Dose Route Start Last Admin Trade Name Freq PRN Reason Stop Dose Admin Azithromycin 500 mg 01/21/21 23:35 01/21/21 23:42 Azithromycin 250 Mg Tab PO 01/21/21 23:36 500 mg Q24H ONE Administration Dexamethasone 10 mg 01/22/21 00:13 01/22/21 00:32 Dexamethasone 10 Mg/Ml Sdv IVPUSH 01/22/21 00:14 10 mg ONETIME ONE Administration Remdesivir 200 mg/ Sodium 250 mls @ 250 mls/hr 01/22/21 00:13 01/22/21 00:58 Chloride IV 01/22/21 00:14 250 mls/hr ONETIME ONE Administration Ibuprofen 600 mg 01/21/21 23:35 01/21/21 23:41 Ibuprofen 600 Mg Tab PO 01/21/21 23:36 600 mg ONETIME ONE Administration Tramadol HCl 50 mg 01/21/21 23:35 01/21/21 23:42 Tramadol 50 Mg Tab PO 01/21/21 23:36 50 mg ONETIME ONE Administration Departure - Departure Time of Disposition: 23:40 Disposition: Admitted As Inpatient 68 Condition: Fair Clinical Impression: Pneumonia due to COVID-19 virus, Hypoxia - Discharge Information Sepsis Event Note (ED) - Evaluation Sepsis Screening Result: No Definite Risk - Focused Exam Vital Signs: Vital Signs Temp Pulse Resp BP Pulse Ox 01/21/21 21:34 97.2 F 60 22 H 139/87 87 L - My Orders Last 24 Hours: My Active Orders 01/22/21 00:17 Patient Status [ADT] Routine 01/23/21 00:15 BILIRUBIN DIRECT [CHEM] DAILY 01/24/21 00:15 BILIRUBIN DIRECT [CHEM] DAILY 01/25/21 00:15 BILIRUBIN DIRECT [CHEM] DAILY 01/26/21 00:15 BILIRUBIN DIRECT [CHEM] DAILY - Assessment/Plan Last 24 Hours: My Active Orders 01/22/21 00:17 Patient Status [ADT] Routine 01/23/21 00:15 BILIRUBIN DIRECT [CHEM] DAILY 01/24/21 00:15 BILIRUBIN DIRECT [CHEM] DAILY 01/25/21 00:15 BILIRUBIN DIRECT [CHEM] DAILY 01/26/21 00:15 BILIRUBIN DIRECT [CHEM] DAILY
[2021-01-21] MEDS ORDERED: Ibuprofen 600 MG Tab PO ONE (23:35)
[2021-01-21] MEDS ORDERED: traMADol 50 MG Tab PO ONE (23:35)
[2021-01-21] MEDS ORDERED: Azithromycin 250 MG Tab PO ONE (23:35)
[2021-01-22] MEDS ORDERED: REMDESIVIR 200 MG in Sodium Chloride 0.9% 250 ML IV ONE (00:13)
[2021-01-22] MEDS ORDERED: Dexamethasone 10 MG/ML SDV IVPUSH ONE (00:13)
[2021-01-22] MEDS ORDERED: Sodium Chloride 0.9% 2.5 ML Syringe FLUSH PRN (00:18)
[2021-01-22] MEDS ORDERED: Sodium Chloride 0.9% 10 ML Syringe FLUSH PRN (00:18)
[2021-01-22 00:31] LABS: BLOOD UREA NITROGEN,BUN 13 mg/dL (7.0-18.0); CHLORIDE,CL 99 mmol/L (98-107); GLUCOSE RANDOM 100 mg/dL (74-106); POTASSIUM,K 4.2 mmol/L (3.5-5.1); SODIUM,NA 137 mmol/L (136-145)
[2021-01-22] MEDS ORDERED: Albuterol/Ipratropium 3.0-0.5 MG/3 ML Neb Soln NEB PRN (01:35)
[2021-01-22] MEDS ORDERED: guaiFENesin/Dextromethorphan 100-10 MG/5 ML Soln 10 ML Cup PO PRN (01:39)
[2021-01-22] MEDS ORDERED: Ondansetron 4 MG/2 ML SDV IVPUSH PRN (01:40)
[2021-01-22] MEDS ORDERED: Acetaminophen 325 MG Tab PO PRN (01:41)
[2021-01-22] MEDS ORDERED: Morphine 2 MG/ML SYRINGE IVPUSH PRN (01:41)
[2021-01-22] MEDS: Albuterol/Ipratropium 4 GM Inhalation Spray INH SCH ×6 (02:05→20:52)
[2021-01-22 06:41] LABS: BLOOD UREA NITROGEN,BUN 14 mg/dL (7.0-18.0); CARBON DIOXIDE,CO2 27.3 mmol/L (21.0-32.0); CHLORIDE,CL 100 mmol/L (98-107); GLUCOSE RANDOM 151 mg/dL (74-106); POTASSIUM,K 4.9 mmol/L (3.5-5.1); SODIUM,NA 137 mmol/L (136-145)
--- NOTE | 2021-01-22 07:26 | PCM.HP.2 ---
<Tanvi Lazar - Last Filed: 01/22/21 13:48> H&P History of Present Illness - General Date of Service: 01/22/21 Admit Problem/Dx: Admission Diagnosis/Problem Admission Diagnosis/Problem Respiratory failure with hypoxia - History of Present Illness Initial Comments - Free Text/Narative: 60-year-old female with history of hypertension was diagnosed with Covid 5 days ago after having symptoms that started 7 days ago. Patient presented to the ER with significant shortness of breath, and pain with coughing. Patient denies fever, chills, nausea, vomiting, diarrhea, changes in smell or taste. Patient's cough has been productive of white sputum. Patient does have worsening shortness of breath over the past few days. Denies calf pain. Patient tested positive for Covid in the ER. CXR: Multifocal bilateral airspace disease consistent with Covid pneumonia. Oxygen percent saturation 84% on room air. 97% on 5 L nasal cannula. EKG: Nonspecific STT wave abnormalities. Normal axis. No evidence of ST elevation. Normal sinus rhythm, heart rate 67. Patient received azithromycin in the ER. CBC unremarkable. Hemoglobin 13.2. WBC 7.17. Sodium 137. Potassium 4.9. Chloride 100. Bicarb 27.3. BUN 14. Creatinine 0.7. Blood glucose 151. AST 53. ALT 46. ALP 64. Vital signs ER: T 95.9. P 53. Blood pressure 144/84. Respiratory rate 16. 94% on 4 L nasal cannula. Patient started on remdesivir and dexamethasone. Patient has not been vaccinated for COVID-19. Past medical history: Hypertension Home medications: Lisinopril 10 mg daily. CODE STATUS: Full code - Related Data Allergies/Adverse Reactions: Allergies Allergy/AdvReac Type Severity Reaction Status Date / Time No Known Allergies Allergy Verified 01/22/21 01:56 Home Medications: Home Meds lisinopriL [Zestril] 10 mg PO QAM 05/02/19 [History] Acetaminophen/HYDROcodone [[place] 325-10 MG] 1 tab PO Q6H PRN #30 tablet 05/06/19 [Rx] Ibuprofen [Motrin] 800 mg PO Q6H PRN #40 tablet 05/06/19 [Rx] Past Medical History HEENT History: Reports: Other (See Below) Other HEENT History: uses glasses for driving Cardiovascular History: Reports: Hypertension [employer] History: Reports: Musculoskeletal History: Reports: Fracture Other Musculoskeletal History: fracture wrist Endocrine/Metabolic History: Reports: Obesity/BMI 30+ - Infectious Disease History Infectious Disease History: Reports: None - Past Surgical History Head Surgeries/Procedures: Reports: None HEENT Surgical History: Reports: Oral Surgery Other HEENT Surgeries/Procedures: has 1 upper dental implant Social & Family History - Family History Family Medical History: No Pertinent Family History - Tobacco Use Tobacco Use Status *Q: Never Tobacco User Second Hand Smoke Exposure: No - Caffeine Use Caffeine Use: Reports: Coffee - Recreational Drug Use Recreational Drug Use: No H&P Review of Systems - Review of Systems: Review Of Systems: See Below General: Reports: Fatigue. Denies: Fever HEENT: Denies: Sinus Congestion, Sore Throat, Visual Changes Pulmonary: Reports: Shortness of Breath, Cough, Sputum. Denies: Wheezing Cardiovascular: Denies: Chest Pain, Palpitations, Edema Gastrointestinal: Denies: Abdominal Pain, Bloody Stool, Constipation, Diarrhea, Decreased Appetite Genitourinary: Denies: Dysuria, Burning Musculoskeletal: Denies: Leg Pain Skin: Denies: Cyanosis Psychiatric: Denies: Confusion Neurological: Denies: Dizziness, Headache, Numbness, Paresthesia Exam - Exam Exam: See Below - Vital Signs Vital Signs: Last Vital Signs Temp 95.9 F L 01/22/21 04:51 Pulse 53 L 01/22/21 04:51 Resp 16 01/22/21 04:51 BP 144/84 H 01/22/21 04:51 Pulse Ox 94 L 01/22/21 04:51 Weight: 76.566 kg - Exam General: Alert, Oriented, Cooperative HEENT: Conjunctiva Clear, Mucosa Moist & [place], PERRLA Neck: Supple, Trachea Midline Lungs: Decreased Breath Sounds, Rales Cardiovascular: Regular Rate, Regular Rhythm GI/Abdominal Exam: Normal Bowel Sounds, Soft, Non-Tender Back Exam: Normal Inspection. No: CVA Tenderness (L), CVA Tenderness (R) Extremities: Normal Inspection, Normal Range of Motion, Non-Tender, No Pedal Edema. No: Terry's Sign Peripheral Pulses: 2+: Dorsalis Pedis (L), Dorsalis Pedis (R) Skin: Warm, Dry, Intact Neurological: Reflexes Equal Bilateral, Strength Equal Bilateral, Normal Speech, Normal Tone Neuro Extensive - Mental Status: Alert, Oriented x3 - Patient Data Lab Results Last 24 hrs: Laboratory Results - last 24 hr 01/21/21 01/21/21 01/22/21 Range/Units 21:30 21:30 00:15 WBC 7.84 (4.0-11.0) K/uL RBC 4.50 (4.30-5.90) M/uL Hgb 13.8 (12.0-16.0) g/dL Hct 40.9 (36.0-46.0) % MCV 90.9 (80.0-98.0) fL MCH 30.7 (27.0-32.0) pg MCHC 33.7 (31.0-37.0) g/dL RDW Std Deviation 44.2 (28.0-62.0) fl RDW Coeff of Arely 13 (11.0-15.0) % Plt Count 227 (150-400) K/uL MPV 12.70 H (7.40-12.00) fL Neut % (Auto) 65.8 (48.0-80.0) % Lymph % (Auto) 24.4 (16.0-40.0) % [place] % (Auto) 9.2 (0.0-15.0) % Eos % (Auto) 0.3 (0.0-7.0) % Baso % (Auto) 0.3 (0.0-1.5) % Neut # (Auto) 5.2 (1.4-5.7) K/uL Lymph # (Auto) 1.9 (0.6-2.4) K/uL [place] # (Auto) 0.7 (0.0-0.8) K/uL Eos # (Auto) 0.0 (0.0-0.7) K/uL Baso # (Auto) 0.0 (0.0-0.1) K/uL Nucleated RBC % 0.0 /100WBC Nucleated RBCs # 0 K/uL Sodium 137 (136-145) mmol/L Potassium 4.2 (3.5-5.1) mmol/L Chloride 99 (98-107) mmol/L Carbon Dioxide 26.0 (21.0-32.0) mmol/L BUN 13 (7.0-18.0) mg/dL Creatinine 0.8 (0.6-1.0) mg/dL Est Cr Clr Drug Dosing 57.84 mL/min Estimated GFR (MDRD) > 60.0 ml/min Glucose 100 (74-106) mg/dL Calcium 8.3 L (8.5-10.1) mg/dL Total Bilirubin 0.6 (0.2-1.0) mg/dL Direct Bilirubin 0.10 (0.0-0.5) mg/dL AST 60 H (15-37) IU/L ALT 50 (14-63) IU/L Alkaline Phosphatase 67 (46-116) U/L Total Protein 7.5 (6.4-8.2) g/dL Albumin 2.9 L (3.4-5.0) g/dL Globulin 4.6 H (2.6-4.0) g/dL Albumin/Globulin Ratio 0.6 L (0.9-1.6) SARS-CoV-2 RNA (ROCÍO) POSITIVE H (NEGATIVE) 01/22/21 01/22/21 Range/Units 05:35 05:35 WBC 7.17 (4.0-11.0) K/uL RBC 4.40 (4.30-5.90) M/uL Hgb 13.2 (12.0-16.0) g/dL Hct 40.3 (36.0-46.0) % MCV 91.6 (80.0-98.0) fL MCH 30.0 (27.0-32.0) pg MCHC 32.8 (31.0-37.0) g/dL RDW Std Deviation 44.5 (28.0-62.0) fl RDW Coeff of Arely 13 (11.0-15.0) % Plt Count 230 (150-400) K/uL MPV 12.10 H (7.40-12.00) fL Neut % (Auto) 81.6 H (48.0-80.0) % Lymph % (Auto) 15.5 L (16.0-40.0) % [place] % (Auto) 2.8 (0.0-15.0) % Eos % (Auto) 0.0 (0.0-7.0) % Baso % (Auto) 0.1 (0.0-1.5) % Neut # (Auto) 5.9 H (1.4-5.7) K/uL Lymph # (Auto) 1.1 (0.6-2.4) K/uL [place] # (Auto) 0.2 (0.0-0.8) K/uL Eos # (Auto) 0.0 (0.0-0.7) K/uL Baso # (Auto) 0.0 (0.0-0.1) K/uL Nucleated RBC % 0.0 /100WBC Nucleated RBCs # 0 K/uL Sodium 137 (136-145) mmol/L Potassium 4.9 (3.5-5.1) mmol/L Chloride 100 (98-107) mmol/L Carbon Dioxide 27.3 (21.0-32.0) mmol/L BUN 14 (7.0-18.0) mg/dL Creatinine 0.7 (0.6-1.0) mg/dL Est Cr Clr Drug Dosing 66.10 mL/min Estimated GFR (MDRD) > 60.0 ml/min Glucose 151 H (74-106) mg/dL Calcium 8.2 L (8.5-10.1) mg/dL Total Bilirubin 0.5 (0.2-1.0) mg/dL Direct Bilirubin (0.0-0.5) mg/dL AST 53 H (15-37) IU/L ALT 46 (14-63) IU/L Alkaline Phosphatase 64 (46-116) U/L Total Protein 7.2 (6.4-8.2) g/dL Albumin 2.7 L (3.4-5.0) g/dL Globulin 4.5 H (2.6-4.0) g/dL Albumin/Globulin Ratio 0.6 L (0.9-1.6) SARS-CoV-2 RNA (ROCÍO) (NEGATIVE) Result Diagrams: 01/22/21 05:35 01/22/21 05:35 Maged Results Last 24 hrs: Microbiology 01/22/21 00:30 Anaerobic Blood Culture - Final Blood - Venous Sepsis Event Note - Evaluation Sepsis Screening Result: No Definite Risk - Focused Exam Vital Signs: Vital Signs Temp Pulse Resp BP Pulse Ox Pulse Ox 01/22/21 04:51 95.9 F L 53 L 16 144/84 H 94 L 01/22/21 01:48 95.4 F L 73 18 135/92 H 94 L 01/22/21 01:34 94 L 01/22/21 01:00 60 22 H 139/98 H 96 01/22/21 00:00 62 22 H 134/89 96 01/21/21 23:00 61 22 H 154/91 H 96 01/21/21 22:00 60 22 H 140/87 95 01/21/21 21:34 97.2 F 60 22 H 139/87 87 L - Problem List (1) Acute respiratory failure with hypoxia SNOMED Code(s): 75705589, 392605130 ICD Code: J96.01 - ACUTE RESPIRATORY FAILURE WITH HYPOXIA Status: Acute Current Visit: Yes (2) Pneumonia due to COVID-19 virus SNOMED Code(s): 301144340444119208 ICD Code: U07.1 - COVID-19; J12.82 - PNEUMONIA DUE TO CORONAVIRUS DISEASE 2019 Status: Acute Current Visit: Yes Problem List Initiated/Reviewed/Updated: Yes Orders Last 24hrs: Active Orders 24 hr Category Date Time Status Patient Status [ADT] Routine ADT 01/22/21 00:17 Active Ambulate [RC] ASDIRECTED Care 01/22/21 01:32 Active Antiembolic Devices [RC] PER UNIT ROUTINE Care 01/22/21 01:33 Active Incentive Spirometry [RT Incentive Spirometry] [RC] Care 01/22/21 01:42 Active ASDIRECTED Oxygen Therapy Adult [Oxygen Therapy] [RC] ASDIRECTED Care 01/22/21 01:34 Active RT Aerosol Therapy [RC] ASDIRECTED Care 01/22/21 01:35 Active RT Post Treatment Assessment [RC] Click to Edit Care 01/22/21 01:36 Active RT Pre-Treatment Assessment [RC] Click to Edit Care 01/22/21 01:36 Active Telemetry Monitoring [Cardiac Monitoring] [RC] . Care 01/22/21 01:40 Active DIRECTED Vital Signs [RC] Q4H Care 01/22/21 01:32 Active Heart Healthy Diet [DIET] Diet 01/22/21 Breakfast Active BILIRUBIN DIRECT [CHEM] DAILY Lab 01/23/21 00:15 Ordered BILIRUBIN DIRECT [CHEM] DAILY Lab 01/24/21 00:15 Ordered BILIRUBIN DIRECT [CHEM] DAILY Lab 01/25/21 00:15 Ordered BILIRUBIN DIRECT [CHEM] DAILY Lab 01/26/21 00:15 Ordered CULTURE BLOOD [BC] Stat Lab 01/22/21 00:30 Results CULTURE BLOOD [BC] Stat Lab 01/22/21 00:40 Received Acetaminophen [TylenoL] Med 01/22/21 01:41 Active 650 mg PO Q4H PRN Albuterol/Ipratropium [Combivent Respimat] Med 01/22/21 01:45 Active See Dose Instructions INH Q4H Albuterol/Ipratropium [DuoNeb 3.0-0.5 MG/3 ML] Med 01/22/21 01:35 Active 3 ml NEB Q4HRRT PRN Dextromethorphan/guaiFENesin [Robitussin DM] Med 01/22/21 01:39 Active 10 ml PO Q4H PRN Enoxaparin [Lovenox] Med 01/22/21 09:00 Active 40 mg SUBCUT DAILY Morphine Med 01/22/21 01:41 Active 1 mg IVPUSH Q6H PRN Ondansetron [Zofran] Med 01/22/21 01:40 Active 4 mg IVPUSH Q4H PRN Pantoprazole [ProTONIX IV] 40 mg Med 01/22/21 09:00 Active Sodium Chloride 0.9% [Normal Saline] 10 ml IV DAILY Remdesivir 100 mg Med 01/22/21 17:00 Active Sodium Chloride 0.9% [Normal Saline] 100 ml IV Q24H Sodium Chloride 0.9% [Saline Flush] Med 01/22/21 00:18 Active 10 ml FLUSH ASDIRECTED PRN Sodium Chloride 0.9% [Saline Flush] Med 01/22/21 00:18 Active 2.5 ml FLUSH ASDIRECTED PRN dexAMETHasone Med 01/22/21 09:00 Active 6 mg PO DAILY Blood Culture x2 Reflex Set [OM.PC] Stat Oth 01/22/21 00:19 Ordered SCD [Sequential Compression Device] [OM.PC] Routine Oth 01/22/21 01:33 Ordered Saline Lock Insert [OM.PC] Stat Oth 01/22/21 00:18 Ordered Medication Orders Acetaminophen (Acetaminophen 325 Mg Tab) 650 mg PO Q4H PRN PRN Reason: Pain/Fever Albuterol/Ipratropium (Albuterol/Ipratropium 3.0-0.5 Mg/3 Ml Neb Soln) 3 ml NEB Q4HRRT PRN PRN Reason: Shortness of Breath Albuterol/Ipratropium (Albuterol/Ipratropium 4 Gm Inhalation [place]) 0 gm INH Q4H [facility] Last Admin: 01/22/21 04:55 Dose: 1 puff Documented by: Admin: 01/22/21 02:05 Dose: 1 puff Documented by: KARLEE Dexamethasone (Dexamethasone 4 Mg Tab) 6 mg PO DAILY [facility] Enoxaparin Sodium (Enoxaparin 40 Mg/0.4 Ml Syringe) 40 mg SUBCUT DAILY [facility] Guaifenesin/Dextromethorphan (Guaifenesin/Dextromethorphan 100-10 Mg/5 Ml Soln 10 Ml Cup) 10 ml PO Q4H PRN PRN Reason: Cough Remdesivir 100 mg/ Sodium (Chloride) 100 mls @ 100 mls/hr IV Q24H [facility] Stop: 01/25/21 17:59 Pantoprazole Sodium 40 mg/ (Sodium Chloride) 10 mls @ 300 mls/hr IV DAILY [facility] Morphine Sulfate (Morphine 2 Mg/Ml Syringe) 1 mg IVPUSH Q6H PRN PRN Reason: Pain Ondansetron HCl (Ondansetron 4 Mg/2 Ml Sdv) 4 mg IVPUSH Q4H PRN PRN Reason: Nausea/Vomiting Sodium Chloride (Sodium Chloride 0.9% 10 Ml Syringe) 10 ml FLUSH ASDIRECTED PRN PRN Reason: Keep Vein Open Last Admin: 01/22/21 00:36 Dose: 10 ml Documented by: LEONID Sodium Chloride (Sodium Chloride 0.9% 2.5 Ml Syringe) 2.5 ml FLUSH ASDIRECTED PRN PRN Reason: Keep Vein Open Last Admin: 01/22/21 00:36 Dose: 2.5 ml Documented by: LEONID Assessment/Plan Comment:: 60-year-old female admitted for acute hypoxic respiratory failure secondary to Covid pneumonia: Remdesivir 100 mg x 4 doses. Albuterol/ipratropium nebulizer every 4 hours as needed. Combivent. Dexamethasone 6 mg daily. Lovenox 40 mg daily. Guaifenesin/dextromethorphan every 4 hours as needed. Protonix 40 mg daily. Morphine 1 mg every 6 hours. Zofran 4 mg IV every 4 hours as needed. <Chad Alvarez - Last Filed: 01/23/21 23:16> H&P History of Present Illness - General Admit Problem/Dx: Admission Diagnosis/Problem Admission Diagnosis/Problem Respiratory failure with hypoxia Exam - Vital Signs Vital Signs: Last Vital Signs Temp 36.1 C 01/23/21 19:44 Pulse 61 01/23/21 19:44 Resp 17 01/23/21 19:44 BP 133/78 01/23/21 19:44 Pulse Ox 92 L 01/23/21 19:44 - Patient Data Lab Results Last 24 hrs: Laboratory Results - last 24 hr 01/23/21 01/23/21 01/23/21 Range/Units 05:59 05:59 05:59 WBC 15.48 H (4.0-11.0) K/uL RBC 4.51 (4.30-5.90) M/uL Hgb 13.6 (12.0-16.0) g/dL Hct 41.1 (36.0-46.0) % MCV 91.1 (80.0-98.0) fL MCH 30.2 (27.0-32.0) pg MCHC 33.1 (31.0-37.0) g/dL RDW Std Deviation 43.8 (28.0-62.0) fl RDW Coeff of Arely 13 (11.0-15.0) % Plt Count 309 (150-400) K/uL MPV 12.30 H (7.40-12.00) fL Add Manual Diff YES Neutrophils % (Manual) 87 H (48.0-80.0) % Lymphocytes % (Manual) 8 L (16.0-40.0) % Atypical Lymphs % 1 Monocytes % (Manual) 4 (0.0-15.0) % Nucleated RBC % 0.0 /100WBC Absolute Seg Neuts 13.5 H (1.4-5.7) Lymphocytes # (Manual) 1.2 (0.6-2.4) Monocytes # (Manual) 0.6 (0.0-0.8) Nucleated RBCs # 0 K/uL Sodium 139 (136-145) mmol/L Potassium 4.3 (3.5-5.1) mmol/L Chloride 102 (98-107) mmol/L Carbon Dioxide 27.1 (21.0-32.0) mmol/L BUN 16 (7.0-18.0) mg/dL Creatinine 0.8 (0.6-1.0) mg/dL Est Cr Clr Drug Dosing 57.84 mL/min Estimated GFR (MDRD) > 60.0 ml/min Glucose 128 H (74-106) mg/dL Calcium 8.5 (8.5-10.1) mg/dL Total Bilirubin 0.5 (0.2-1.0) mg/dL AST 42 H (15-37) IU/L ALT 51 (14-63) IU/L Alkaline Phosphatase 64 (46-116) U/L C-Reactive Protein 6.50 H (0.00-0.90) mg/dL Total Protein 7.2 (6.4-8.2) g/dL Albumin 2.7 L (3.4-5.0) g/dL Globulin 4.5 H (2.6-4.0) g/dL Albumin/Globulin Ratio 0.6 L (0.9-1.6) Result Diagrams: 01/23/21 05:59 01/23/21 05:59 Maged Results Last 24 hrs: Microbiology 01/22/21 00:40 Aerobic Blood Culture - Preliminary Blood - Venous - Lab Draw NO GROWTH AFTER 1 DAY Anaerobic Blood Culture - Preliminary NO GROWTH AFTER 1 DAY 01/22/21 00:30 Aerobic Blood Culture - Preliminary Blood - Venous NO GROWTH AFTER 1 DAY Anaerobic Blood Culture - Final Sepsis Event Note - Focused Exam Vital Signs: Vital Signs Temp Pulse Resp BP Pulse Ox 01/23/21 19:44 36.1 C 61 17 133/78 92 L 01/23/21 15:00 35.8 C L 52 L 16 118/70 91 L 01/23/21 11:32 35.6 C L 54 L 22 H 130/85 95 Orders Last 24hrs: Active Orders 24 hr Category Date Time Status BILIRUBIN DIRECT [CHEM] DAILY Lab 01/24/21 00:15 Ordered BILIRUBIN DIRECT [CHEM] DAILY Lab 01/25/21 00:15 Ordered BILIRUBIN DIRECT [CHEM] DAILY Lab 01/26/21 00:15 Ordered CBC WITH AUTO DIFF [HEME] DAILY Lab 01/24/21 05:11 Ordered CBC WITH AUTO DIFF [HEME] DAILY Lab 01/25/21 05:11 Ordered CBC WITH AUTO DIFF [HEME] DAILY Lab 01/26/21 05:11 Ordered CBC WITH AUTO DIFF [HEME] DAILY Lab 01/27/21 05:11 Ordered CBC WITH AUTO DIFF [HEME] DAILY Lab 01/28/21 05:11 Ordered CBC WITH AUTO DIFF [HEME] DAILY Lab 01/29/21 05:11 Ordered COMPREHENSIVE METABOLIC PN,CMP [CHEM] DAILY Lab 01/24/21 05:11 Ordered COMPREHENSIVE METABOLIC PN,CMP [CHEM] DAILY Lab 01/25/21 05:11 Ordered COMPREHENSIVE METABOLIC PN,CMP [CHEM] DAILY Lab 01/26/21 05:11 Ordered COMPREHENSIVE METABOLIC PN,CMP [CHEM] DAILY Lab 01/27/21 05:11 Ordered COMPREHENSIVE METABOLIC PN,CMP [CHEM] DAILY Lab 01/28/21 05:11 Ordered COMPREHENSIVE METABOLIC PN,CMP [CHEM] DAILY Lab 01/29/21 05:11 Ordered PROCALCITONIN [REF] Routine Lab 01/23/21 05:59 Received Pantoprazole [ProTONIX IV] 40 mg Med 01/24/21 09:00 Active Sodium Chloride 0.9% [Normal Saline] 10 ml IV DAILY Medication Orders Acetaminophen (Acetaminophen 325 Mg Tab) 650 mg PO Q4H PRN PRN Reason: Pain/Fever Albuterol/Ipratropium (Albuterol/Ipratropium 3.0-0.5 Mg/3 Ml Neb Soln) 3 ml NEB Q4HRRT PRN PRN Reason: Shortness of Breath Last Admin: 01/22/21 20:52 Dose: 3 ml Documented by: SHYLA Albuterol/Ipratropium (Albuterol/Ipratropium 4 Gm Inhalation [place]) 0 gm INH Q4H [facility] Last Admin: 01/23/21 22:49 Dose: 1 puff Documented by: Admin: 01/23/21 17:06 Dose: Not Given Documented by: Admin: 01/23/21 13:00 Dose: 1 puff Documented by: Admin: 01/23/21 09:04 Dose: 1 puff Documented by: Admin: 01/23/21 06:05 Dose: 1 puff Documented by: Admin: 01/23/21 02:40 Dose: 1 puff Documented by: Admin: 01/22/21 20:52 Dose: 1 puff Documented by: Admin: 01/22/21 16:52 Dose: 1 puff Documented by: Admin: 01/22/21 14:11 Dose: 1 puff Documented by: Admin: 01/22/21 09:33 Dose: 1 puff Documented by: Admin: 01/22/21 04:55 Dose: 1 puff Documented by: Admin: 01/22/21 02:05 Dose: 1 puff Documented by: KARLEE Dexamethasone (Dexamethasone 4 Mg Tab) 6 mg PO DAILY [facility] Last Admin: 01/23/21 10:06 Dose: 6 mg Documented by: Admin: 01/22/21 09:32 Dose: 6 mg Documented by: JANES Docusate Sodium (Docusate Sodium 100 Mg Cap) 100 mg PO DAILY PRN PRN Reason: Constipation Last Admin: 01/22/21 20:53 Dose: 100 mg Documented by: SHYLA Enoxaparin Sodium (Enoxaparin 40 Mg/0.4 Ml Syringe) 40 mg SUBCUT DAILY [facility] Last Admin: 01/23/21 10:09 Dose: 40 mg Documented by: Admin: 01/22/21 09:32 Dose: 40 mg Documented by: JANES Guaifenesin/Dextromethorphan (Guaifenesin/Dextromethorphan 100-10 Mg/5 Ml Soln 10 Ml Cup) 10 ml PO Q4H PRN PRN Reason: Cough Remdesivir 100 mg/ Sodium (Chloride) 100 mls @ 100 mls/hr IV Q24H [facility] Stop: 01/25/21 17:59 Last Admin: 01/23/21 16:09 Dose: 100 mls/hr Documented by: Infusion: 01/22/21 18:16 Dose: 100 mls/hr Documented by: Admin: 01/22/21 17:16 Dose: 100 mls/hr Documented by: JANES Pantoprazole Sodium 40 mg/ (Sodium Chloride) 10 mls @ 300 mls/hr IV DAILY [facility] Lisinopril (Lisinopril 10 Mg Tab) 10 mg PO DAILY [facility] Last Admin: 01/23/21 10:09 Dose: 10 mg Documented by: Admin: 01/22/21 12:27 Dose: 10 mg Documented by: JANES Morphine Sulfate (Morphine 2 Mg/Ml Syringe) 1 mg IVPUSH Q6H PRN PRN Reason: Pain Ondansetron HCl (Ondansetron 4 Mg/2 Ml Sdv) 4 mg IVPUSH Q4H PRN PRN Reason: Nausea/Vomiting Sodium Chloride (Sodium Chloride 0.9% 10 Ml Syringe) 10 ml FLUSH ASDIRECTED PRN PRN Reason: Keep Vein Open Last Admin: 01/22/21 00:36 Dose: 10 ml Documented by: LEONID Sodium Chloride (Sodium Chloride 0.9% 2.5 Ml Syringe) 2.5 ml FLUSH ASDIRECTED PRN PRN Reason: Keep Vein Open Last Admin: 01/22/21 00:36 Dose: 2.5 ml Documented by: LEONID Assessment/Plan Comment:: I have seen and evaluated the patient and agree with the residents note unless specified in my note I performed a history and physical exam of the patient and discussed management with resident. I have reviewed the residents note and agree with documented findings and plan unless otherwise specified in my note.
[2021-01-22] MEDS ORDERED: Pantoprazole 40 MG Vial ONE (09:09)
[2021-01-22] MEDS: Dexamethasone 4 MG Tab PO SCH (09:32)
[2021-01-22] MEDS: Enoxaparin 40 MG/0.4 ML Syringe SUBCUT SCH (09:32)
[2021-01-22] MEDS: Pantoprazole 40 MG in Sodium Chloride 0.9% 10 ML IV SCH (09:33)
[2021-01-22] MEDS: Lisinopril 10 MG Tab PO SCH (12:27)
[2021-01-22] MEDS: REMDESIVIR 100 MG in Sodium Chloride 0.9% 100 ML IV SCH (17:16)
[2021-01-22] MEDS ORDERED: Docusate Sodium 100 MG Cap PO PRN (17:42)
[2021-01-23] MEDS: Albuterol/Ipratropium 4 GM Inhalation Spray INH SCH ×6 (02:40→22:49)
[2021-01-23 06:43] LABS: BLOOD UREA NITROGEN,BUN 16 mg/dL (7.0-18.0); CARBON DIOXIDE,CO2 27.1 mmol/L (21.0-32.0); CHLORIDE,CL 102 mmol/L (98-107); GLUCOSE RANDOM 128 mg/dL (74-106); POTASSIUM,K 4.3 mmol/L (3.5-5.1); SODIUM,NA 139 mmol/L (136-145)
[2021-01-23] MEDS ORDERED: Pantoprazole 40 MG Vial ONE (09:59)
[2021-01-23] MEDS: Dexamethasone 4 MG Tab PO SCH (10:06)
[2021-01-23] MEDS: Pantoprazole 40 MG in Sodium Chloride 0.9% 10 ML IV SCH (10:08)
[2021-01-23] MEDS: Enoxaparin 40 MG/0.4 ML Syringe SUBCUT SCH (10:09)
[2021-01-23] MEDS: Lisinopril 10 MG Tab PO SCH (10:09)
--- NOTE | 2021-01-23 11:40 | PCM.PN ---
<Tanvi Lazar - Last Filed: 01/23/21 11:37> - General Info Date of Service: 01/23/21 Admission Dx/Problem (Free Text): Admission Diagnosis/Problem Admission Diagnosis/Problem Respiratory failure with hypoxia Subjective Update: 60-year-old female admitted for Covid pneumonia, day two of admission. Patient is receiving dexamethasone, remdesivir, Lovenox, Combivent. Patient states she feels well but continues to have shortness of breath. Oxygen requirements have increased to 6 L high flow nasal cannula. Patient states her appetite is okay. She still has shortness of breath and pain with coughing. No chest pain, palpitations, nausea, vomiting, diarrhea, headaches, dizziness or weakness. - Review of Systems General: Denies: Fever Pulmonary: Reports: Shortness of Breath, Cough. Denies: Pleuritic Chest Pain Cardiovascular: Reports: Dyspnea on Exertion. Denies: Chest Pain, Palpitations Gastrointestinal: Denies: Abdominal Pain, Constipation, Decreased Appetite, Diarrhea Genitourinary: Denies: Dysuria Musculoskeletal: Denies: Leg Pain Skin: Denies: Rash Neurological: Denies: Confusion - Patient Data Vitals - Most Recent: Last Vital Signs Temp 96.1 F L 01/23/21 11:32 Pulse 54 L 01/23/21 11:32 Resp 22 H 01/23/21 11:32 BP 130/85 01/23/21 11:32 Pulse Ox 95 01/23/21 11:32 Weight - Most Recent: 76.566 kg I&O - Last 24 Hours: Intake & Output 01/22/21 01/23/21 01/23/21 22:59 06:59 14:59 Intake Total 720 700 Output Total 950 Balance -230 700 Lab Results Last 24 Hours: Laboratory Results - last 24 hr 01/23/21 01/23/21 Range/Units 05:59 05:59 WBC 15.48 H (4.0-11.0) K/uL RBC 4.51 (4.30-5.90) M/uL Hgb 13.6 (12.0-16.0) g/dL Hct 41.1 (36.0-46.0) % MCV 91.1 (80.0-98.0) fL MCH 30.2 (27.0-32.0) pg MCHC 33.1 (31.0-37.0) g/dL RDW Std Deviation 43.8 (28.0-62.0) fl RDW Coeff of Arely 13 (11.0-15.0) % Plt Count 309 (150-400) K/uL MPV 12.30 H (7.40-12.00) fL Add Manual Diff YES Neutrophils % (Manual) 87 H (48.0-80.0) % Lymphocytes % (Manual) 8 L (16.0-40.0) % Atypical Lymphs % 1 Monocytes % (Manual) 4 (0.0-15.0) % Nucleated RBC % 0.0 /100WBC Absolute Seg Neuts 13.5 H (1.4-5.7) Lymphocytes # (Manual) 1.2 (0.6-2.4) Monocytes # (Manual) 0.6 (0.0-0.8) Nucleated RBCs # 0 K/uL Sodium 139 (136-145) mmol/L Potassium 4.3 (3.5-5.1) mmol/L Chloride 102 (98-107) mmol/L Carbon Dioxide 27.1 (21.0-32.0) mmol/L BUN 16 (7.0-18.0) mg/dL Creatinine 0.8 (0.6-1.0) mg/dL Est Cr Clr Drug Dosing 57.84 mL/min Estimated GFR (MDRD) > 60.0 ml/min Glucose 128 H (74-106) mg/dL Calcium 8.5 (8.5-10.1) mg/dL Total Bilirubin 0.5 (0.2-1.0) mg/dL AST 42 H (15-37) IU/L ALT 51 (14-63) IU/L Alkaline Phosphatase 64 (46-116) U/L Total Protein 7.2 (6.4-8.2) g/dL Albumin 2.7 L (3.4-5.0) g/dL Globulin 4.5 H (2.6-4.0) g/dL Albumin/Globulin Ratio 0.6 L (0.9-1.6) Maged Results Last 24 Hours: Microbiology 01/22/21 00:40 Aerobic Blood Culture - Preliminary Blood - Venous - Lab Draw NO GROWTH AFTER 1 DAY Anaerobic Blood Culture - Preliminary NO GROWTH AFTER 1 DAY 01/22/21 00:30 Aerobic Blood Culture - Preliminary Blood - Venous NO GROWTH AFTER 1 DAY Anaerobic Blood Culture - Final Med Orders - Current: Current Medications Acetaminophen (Acetaminophen 325 Mg Tab) 650 mg PO Q4H PRN PRN Reason: Pain/Fever Albuterol/Ipratropium (Albuterol/Ipratropium 3.0-0.5 Mg/3 Ml Neb Soln) 3 ml NEB Q4HRRT PRN PRN Reason: Shortness of Breath Last Admin: 01/22/21 20:52 Dose: 3 ml Documented by: Albuterol/Ipratropium (Albuterol/Ipratropium 4 Gm Inhalation Stendal) 0 gm INH Q4H [facility] Last Admin: 01/23/21 09:04 Dose: 1 puff Documented by: Dexamethasone (Dexamethasone 4 Mg Tab) 6 mg PO DAILY [facility] Last Admin: 01/23/21 10:06 Dose: 6 mg Documented by: Docusate Sodium (Docusate Sodium 100 Mg Cap) 100 mg PO DAILY PRN PRN Reason: Constipation Last Admin: 01/22/21 20:53 Dose: 100 mg Documented by: Enoxaparin Sodium (Enoxaparin 40 Mg/0.4 Ml Syringe) 40 mg SUBCUT DAILY [facility] Last Admin: 01/23/21 10:09 Dose: 40 mg Documented by: Guaifenesin/Dextromethorphan (Guaifenesin/Dextromethorphan 100-10 Mg/5 Ml Soln 10 Ml Cup) 10 ml PO Q4H PRN PRN Reason: Cough Remdesivir 100 mg/ Sodium (Chloride) 100 mls @ 100 mls/hr IV Q24H [facility] Stop: 01/25/21 17:59 Last Admin: 01/22/21 17:16 Dose: 100 mls/hr Documented by: Pantoprazole Sodium 40 mg/ (Sodium Chloride) 10 mls @ 300 mls/hr IV DAILY [facility] Last Admin: 01/23/21 10:08 Dose: 300 mls/hr Documented by: Lisinopril (Lisinopril 10 Mg Tab) 10 mg PO DAILY [facility] Last Admin: 01/23/21 10:09 Dose: 10 mg Documented by: Morphine Sulfate (Morphine 2 Mg/Ml Syringe) 1 mg IVPUSH Q6H PRN PRN Reason: Pain Ondansetron HCl (Ondansetron 4 Mg/2 Ml Sdv) 4 mg IVPUSH Q4H PRN PRN Reason: Nausea/Vomiting Sodium Chloride (Sodium Chloride 0.9% 10 Ml Syringe) 10 ml FLUSH ASDIRECTED PRN PRN Reason: Keep Vein Open Last Admin: 01/22/21 00:36 Dose: 10 ml Documented by: Sodium Chloride (Sodium Chloride 0.9% 2.5 Ml Syringe) 2.5 ml FLUSH ASDIRECTED PRN PRN Reason: Keep Vein Open Last Admin: 01/22/21 00:36 Dose: 2.5 ml Documented by: Discontinued Medications Azithromycin (Azithromycin 250 Mg Tab) 500 mg PO Q24H ONE Stop: 01/21/21 23:36 Last Admin: 01/21/21 23:42 Dose: 500 mg Documented by: Dexamethasone (Dexamethasone 10 Mg/Ml Sdv) 10 mg IVPUSH ONETIME ONE Stop: 01/22/21 00:14 Last Admin: 01/22/21 00:32 Dose: 10 mg Documented by: Remdesivir 200 mg/ Sodium (Chloride) 250 mls @ 250 mls/hr IV ONETIME ONE Stop: 01/22/21 00:14 Last Admin: 01/22/21 00:58 Dose: 250 mls/hr Documented by: Ibuprofen (Ibuprofen 600 Mg Tab) 600 mg PO ONETIME ONE Stop: 01/21/21 23:36 Last Admin: 01/21/21 23:41 Dose: 600 mg Documented by: Pantoprazole Sodium (Pantoprazole 40 Mg Vial) Confirm Administered Dose 40 mg .ROUTE .STK-MED ONE Stop: 01/22/21 09:10 Last Admin: 01/22/21 09:33 Dose: 40 mg Documented by: Pantoprazole Sodium (Pantoprazole 40 Mg Vial) Confirm Administered Dose 40 mg .ROUTE .STK-MED ONE Stop: 01/23/21 10:00 Last Admin: 01/23/21 10:08 Dose: Not Given Documented by: Tramadol HCl (Tramadol 50 Mg Tab) 50 mg PO ONETIME ONE Stop: 01/21/21 23:36 Last Admin: 01/21/21 23:42 Dose: 50 mg Documented by: - Exam Quality Assessment: Supplemental Oxygen General: Alert, Oriented, Cooperative HEENT: Pupils Equal, Pupils Reactive, Mucous Membr. Moist/[place] Neck: Supple, Trachea Midline Lungs: Decreased Breath Sounds, Wheezing Cardiovascular: Regular Rate, Regular Rhythm, No Murmurs GI/Abdominal Exam: Normal Bowel Sounds, Soft, Non-Tender Extremities: Normal Inspection, Non-Tender, No Pedal Edema. No: Terry's Sign Peripheral Pulses: 2+: Dorsalis Pedis (L), Dorsalis Pedis (R) Skin: Warm, Dry, Intact Neurological: No New Focal Deficit - Patient Data Lab Results Last 24 hrs: Laboratory Results - last 24 hr 01/23/21 01/23/21 Range/Units 05:59 05:59 WBC 15.48 H (4.0-11.0) K/uL RBC 4.51 (4.30-5.90) M/uL Hgb 13.6 (12.0-16.0) g/dL Hct 41.1 (36.0-46.0) % MCV 91.1 (80.0-98.0) fL MCH 30.2 (27.0-32.0) pg MCHC 33.1 (31.0-37.0) g/dL RDW Std Deviation 43.8 (28.0-62.0) fl RDW Coeff of Arely 13 (11.0-15.0) % Plt Count 309 (150-400) K/uL MPV 12.30 H (7.40-12.00) fL Add Manual Diff YES Neutrophils % (Manual) 87 H (48.0-80.0) % Lymphocytes % (Manual) 8 L (16.0-40.0) % Atypical Lymphs % 1 Monocytes % (Manual) 4 (0.0-15.0) % Nucleated RBC % 0.0 /100WBC Absolute Seg Neuts 13.5 H (1.4-5.7) Lymphocytes # (Manual) 1.2 (0.6-2.4) Monocytes # (Manual) 0.6 (0.0-0.8) Nucleated RBCs # 0 K/uL Sodium 139 (136-145) mmol/L Potassium 4.3 (3.5-5.1) mmol/L Chloride 102 (98-107) mmol/L Carbon Dioxide 27.1 (21.0-32.0) mmol/L BUN 16 (7.0-18.0) mg/dL Creatinine 0.8 (0.6-1.0) mg/dL Est Cr Clr Drug Dosing 57.84 mL/min Estimated GFR (MDRD) > 60.0 ml/min Glucose 128 H (74-106) mg/dL Calcium 8.5 (8.5-10.1) mg/dL Total Bilirubin 0.5 (0.2-1.0) mg/dL AST 42 H (15-37) IU/L ALT 51 (14-63) IU/L Alkaline Phosphatase 64 (46-116) U/L Total Protein 7.2 (6.4-8.2) g/dL Albumin 2.7 L (3.4-5.0) g/dL Globulin 4.5 H (2.6-4.0) g/dL Albumin/Globulin Ratio 0.6 L (0.9-1.6) Result Diagrams: 01/23/21 05:59 01/23/21 05:59 Maged Results Last 24 hrs: Microbiology 01/22/21 00:40 Aerobic Blood Culture - Preliminary Blood - Venous - Lab Draw NO GROWTH AFTER 1 DAY Anaerobic Blood Culture - Preliminary NO GROWTH AFTER 1 DAY 01/22/21 00:30 Aerobic Blood Culture - Preliminary Blood - Venous NO GROWTH AFTER 1 DAY Anaerobic Blood Culture - Final Sepsis Event Note - Evaluation Sepsis Screening Result: No Definite Risk - Focused Exam Vital Signs: Vital Signs Temp Pulse Resp BP BP Pulse Ox 01/23/21 11:32 96.1 F L 54 L 22 H 130/85 95 01/23/21 10:30 94 L 01/23/21 10:09 119/64 01/23/21 09:00 97.1 F 51 L 20 119/64 92 L 01/23/21 02:42 97 F 50 L 17 112/62 92 L 01/22/21 23:57 96.9 F 56 L 16 121/72 93 L - Problem List & Annotations (1) Acute respiratory failure with hypoxia SNOMED Code(s): 31308245, 840489415 Code(s): J96.01 - ACUTE RESPIRATORY FAILURE WITH HYPOXIA Status: Acute Current Visit: Yes (2) Pneumonia due to COVID-19 virus SNOMED Code(s): 803075391967138867 Code(s): U07.1 - COVID-19; J12.82 - PNEUMONIA DUE TO CORONAVIRUS DISEASE 2019 Status: Acute Current Visit: Yes - Problem List Review Problem List Initiated/Reviewed/Updated: Yes - My Orders Last 24 Hours: My Active Orders 01/22/21 11:45 Resuscitation Status Routine 01/22/21 12:00 lisinopriL [Prinivil] 10 mg PO DAILY 01/22/21 17:42 Docusate Sodium [Colace] 100 mg PO DAILY PRN 01/23/21 11:18 CRP [C-REACTIVE PROTEIN] [CHEM] Routine PROCALCITONIN [REF] Routine 01/24/21 05:11 CBC WITH AUTO DIFF [HEME] DAILY COMPREHENSIVE METABOLIC PN,CMP [CHEM] DAILY 01/25/21 05:11 CBC WITH AUTO DIFF [HEME] DAILY COMPREHENSIVE METABOLIC PN,CMP [CHEM] DAILY 01/26/21 05:11 CBC WITH AUTO DIFF [HEME] DAILY COMPREHENSIVE METABOLIC PN,CMP [CHEM] DAILY 01/27/21 05:11 CBC WITH AUTO DIFF [HEME] DAILY COMPREHENSIVE METABOLIC PN,CMP [CHEM] DAILY 01/28/21 05:11 CBC WITH AUTO DIFF [HEME] DAILY COMPREHENSIVE METABOLIC PN,CMP [CHEM] DAILY 01/29/21 05:11 CBC WITH AUTO DIFF [HEME] DAILY COMPREHENSIVE METABOLIC PN,CMP [CHEM] DAILY - Plan Plan:: 60-year-old female admitted for acute hypoxic respiratory failure secondary to Covid pneumonia: We will get a CRP and procalcitonin level. Remdesivir 100 mg x 4 doses. Last dose 01/25/2021. Albuterol/ipratropium nebulizer every 4 hours as needed. Combivent. Dexamethasone 6 mg daily. Lovenox 40 mg daily. Guaifenesin/dextromethorphan every 4 hours as needed. Protonix 40 mg daily. Morphine 1 mg every 6 hours. Zofran 4 mg IV every 4 hours as needed. <Chad Alvarez - Last Filed: 01/23/21 23:21> - Patient Data Vitals - Most Recent: Last Vital Signs Temp 36.1 C 01/23/21 19:44 Pulse 61 01/23/21 19:44 Resp 17 01/23/21 19:44 BP 133/78 01/23/21 19:44 Pulse Ox 92 L 01/23/21 19:44 I&O - Last 24 Hours: Intake & Output 01/23/21 01/23/21 01/24/21 14:59 22:59 06:59 Intake Total 480 Balance 480 Lab Results Last 24 Hours: Laboratory Results - last 24 hr 01/23/21 01/23/21 01/23/21 Range/Units 05:59 05:59 05:59 WBC 15.48 H (4.0-11.0) K/uL RBC 4.51 (4.30-5.90) M/uL Hgb 13.6 (12.0-16.0) g/dL Hct 41.1 (36.0-46.0) % MCV 91.1 (80.0-98.0) fL MCH 30.2 (27.0-32.0) pg MCHC 33.1 (31.0-37.0) g/dL RDW Std Deviation 43.8 (28.0-62.0) fl RDW Coeff of Arely 13 (11.0-15.0) % Plt Count 309 (150-400) K/uL MPV 12.30 H (7.40-12.00) fL Add Manual Diff YES Neutrophils % (Manual) 87 H (48.0-80.0) % Lymphocytes % (Manual) 8 L (16.0-40.0) % Atypical Lymphs % 1 Monocytes % (Manual) 4 (0.0-15.0) % Nucleated RBC % 0.0 /100WBC Absolute Seg Neuts 13.5 H (1.4-5.7) Lymphocytes # (Manual) 1.2 (0.6-2.4) Monocytes # (Manual) 0.6 (0.0-0.8) Nucleated RBCs # 0 K/uL Sodium 139 (136-145) mmol/L Potassium 4.3 (3.5-5.1) mmol/L Chloride 102 (98-107) mmol/L Carbon Dioxide 27.1 (21.0-32.0) mmol/L BUN 16 (7.0-18.0) mg/dL Creatinine 0.8 (0.6-1.0) mg/dL Est Cr Clr Drug Dosing 57.84 mL/min Estimated GFR (MDRD) > 60.0 ml/min Glucose 128 H (74-106) mg/dL Calcium 8.5 (8.5-10.1) mg/dL Total Bilirubin 0.5 (0.2-1.0) mg/dL AST 42 H (15-37) IU/L ALT 51 (14-63) IU/L Alkaline Phosphatase 64 (46-116) U/L C-Reactive Protein 6.50 H (0.00-0.90) mg/dL Total Protein 7.2 (6.4-8.2) g/dL Albumin 2.7 L (3.4-5.0) g/dL Globulin 4.5 H (2.6-4.0) g/dL Albumin/Globulin Ratio 0.6 L (0.9-1.6) Maged Results Last 24 Hours: Microbiology 01/22/21 00:40 Aerobic Blood Culture - Preliminary Blood - Venous - Lab Draw NO GROWTH AFTER 1 DAY Anaerobic Blood Culture - Preliminary NO GROWTH AFTER 1 DAY 01/22/21 00:30 Aerobic Blood Culture - Preliminary Blood - Venous NO GROWTH AFTER 1 DAY Anaerobic Blood Culture - Final Med Orders - Current: Current Medications Acetaminophen (Acetaminophen 325 Mg Tab) 650 mg PO Q4H PRN PRN Reason: Pain/Fever Albuterol/Ipratropium (Albuterol/Ipratropium 3.0-0.5 Mg/3 Ml Neb Soln) 3 ml NEB Q4HRRT PRN PRN Reason: Shortness of Breath Last Admin: 01/22/21 20:52 Dose: 3 ml Documented by: Albuterol/Ipratropium (Albuterol/Ipratropium 4 Gm Inhalation Stendal) 0 gm INH Q4H [facility] Last Admin: 01/23/21 22:49 Dose: 1 puff Documented by: Dexamethasone (Dexamethasone 4 Mg Tab) 6 mg PO DAILY [facility] Last Admin: 01/23/21 10:06 Dose: 6 mg Documented by: Docusate Sodium (Docusate Sodium 100 Mg Cap) 100 mg PO DAILY PRN PRN Reason: Constipation Last Admin: 01/22/21 20:53 Dose: 100 mg Documented by: Enoxaparin Sodium (Enoxaparin 40 Mg/0.4 Ml Syringe) 40 mg SUBCUT DAILY [facility] Last Admin: 01/23/21 10:09 Dose: 40 mg Documented by: Guaifenesin/Dextromethorphan (Guaifenesin/Dextromethorphan 100-10 Mg/5 Ml Soln 10 Ml Cup) 10 ml PO Q4H PRN PRN Reason: Cough Remdesivir 100 mg/ Sodium (Chloride) 100 mls @ 100 mls/hr IV Q24H [facility] Stop: 01/25/21 17:59 Last Admin: 01/23/21 16:09 Dose: 100 mls/hr Documented by: Pantoprazole Sodium 40 mg/ (Sodium Chloride) 10 mls @ 300 mls/hr IV DAILY [facility] Lisinopril (Lisinopril 10 Mg Tab) 10 mg PO DAILY [facility] Last Admin: 01/23/21 10:09 Dose: 10 mg Documented by: Morphine Sulfate (Morphine 2 Mg/Ml Syringe) 1 mg IVPUSH Q6H PRN PRN Reason: Pain Ondansetron HCl (Ondansetron 4 Mg/2 Ml Sdv) 4 mg IVPUSH Q4H PRN PRN Reason: Nausea/Vomiting Sodium Chloride (Sodium Chloride 0.9% 10 Ml Syringe) 10 ml FLUSH ASDIRECTED PRN PRN Reason: Keep Vein Open Last Admin: 01/22/21 00:36 Dose: 10 ml Documented by: Sodium Chloride (Sodium Chloride 0.9% 2.5 Ml Syringe) 2.5 ml FLUSH ASDIRECTED PRN PRN Reason: Keep Vein Open Last Admin: 01/22/21 00:36 Dose: 2.5 ml Documented by: Discontinued Medications Azithromycin (Azithromycin 250 Mg Tab) 500 mg PO Q24H ONE Stop: 01/21/21 23:36 Last Admin: 01/21/21 23:42 Dose: 500 mg Documented by: Dexamethasone (Dexamethasone 10 Mg/Ml Sdv) 10 mg IVPUSH ONETIME ONE Stop: 01/22/21 00:14 Last Admin: 01/22/21 00:32 Dose: 10 mg Documented by: Remdesivir 200 mg/ Sodium (Chloride) 250 mls @ 250 mls/hr IV ONETIME ONE Stop: 01/22/21 00:14 Last Admin: 01/22/21 00:58 Dose: 250 mls/hr Documented by: Pantoprazole Sodium 40 mg/ (Sodium Chloride) 10 mls @ 300 mls/hr IV DAILY [facility] Last Admin: 01/23/21 10:08 Dose: 300 mls/hr Documented by: Ibuprofen (Ibuprofen 600 Mg Tab) 600 mg PO ONETIME ONE Stop: 01/21/21 23:36 Last Admin: 01/21/21 23:41 Dose: 600 mg Documented by: Pantoprazole Sodium (Pantoprazole 40 Mg Vial) Confirm Administered Dose 40 mg .ROUTE .STK-MED ONE Stop: 01/22/21 09:10 Last Admin: 01/22/21 09:33 Dose: 40 mg Documented by: Pantoprazole Sodium (Pantoprazole 40 Mg Vial) Confirm Administered Dose 40 mg .ROUTE .STK-MED ONE Stop: 01/23/21 10:00 Last Admin: 01/23/21 10:08 Dose: Not Given Documented by: Tramadol HCl (Tramadol 50 Mg Tab) 50 mg PO ONETIME ONE Stop: 01/21/21 23:36 Last Admin: 01/21/21 23:42 Dose: 50 mg Documented by: - Patient Data Lab Results Last 24 hrs: Laboratory Results - last 24 hr 01/23/21 01/23/21 01/23/21 Range/Units 05:59 05:59 05:59 WBC 15.48 H (4.0-11.0) K/uL RBC 4.51 (4.30-5.90) M/uL Hgb 13.6 (12.0-16.0) g/dL Hct 41.1 (36.0-46.0) % MCV 91.1 (80.0-98.0) fL MCH 30.2 (27.0-32.0) pg MCHC 33.1 (31.0-37.0) g/dL RDW Std Deviation 43.8 (28.0-62.0) fl RDW Coeff of Arely 13 (11.0-15.0) % Plt Count 309 (150-400) K/uL MPV 12.30 H (7.40-12.00) fL Add Manual Diff YES Neutrophils % (Manual) 87 H (48.0-80.0) % Lymphocytes % (Manual) 8 L (16.0-40.0) % Atypical Lymphs % 1 Monocytes % (Manual) 4 (0.0-15.0) % Nucleated RBC % 0.0 /100WBC Absolute Seg Neuts 13.5 H (1.4-5.7) Lymphocytes # (Manual) 1.2 (0.6-2.4) Monocytes # (Manual) 0.6 (0.0-0.8) Nucleated RBCs # 0 K/uL Sodium 139 (136-145) mmol/L Potassium 4.3 (3.5-5.1) mmol/L Chloride 102 (98-107) mmol/L Carbon Dioxide 27.1 (21.0-32.0) mmol/L BUN 16 (7.0-18.0) mg/dL Creatinine 0.8 (0.6-1.0) mg/dL Est Cr Clr Drug Dosing 57.84 mL/min Estimated GFR (MDRD) > 60.0 ml/min Glucose 128 H (74-106) mg/dL Calcium 8.5 (8.5-10.1) mg/dL Total Bilirubin 0.5 (0.2-1.0) mg/dL AST 42 H (15-37) IU/L ALT 51 (14-63) IU/L Alkaline Phosphatase 64 (46-116) U/L C-Reactive Protein 6.50 H (0.00-0.90) mg/dL Total Protein 7.2 (6.4-8.2) g/dL Albumin 2.7 L (3.4-5.0) g/dL Globulin 4.5 H (2.6-4.0) g/dL Albumin/Globulin Ratio 0.6 L (0.9-1.6) Result Diagrams: 01/23/21 05:59 01/23/21 05:59 Mgaed Results Last 24 hrs: Microbiology 01/22/21 00:40 Aerobic Blood Culture - Preliminary Blood - Venous - Lab Draw NO GROWTH AFTER 1 DAY Anaerobic Blood Culture - Preliminary NO GROWTH AFTER 1 DAY 01/22/21 00:30 Aerobic Blood Culture - Preliminary Blood - Venous NO GROWTH AFTER 1 DAY Anaerobic Blood Culture - Final Sepsis Event Note - Focused Exam Vital Signs: Vital Signs Temp Pulse Resp BP Pulse Ox 01/23/21 19:44 36.1 C 61 17 133/78 92 L 01/23/21 15:00 35.8 C L 52 L 16 118/70 91 L 01/23/21 11:32 35.6 C L 54 L 22 H 130/85 95 - My Orders Last 24 Hours: My Active Orders 01/24/21 09:00 Pantoprazole [ProTONIX IV] 40 mg Sodium Chloride 0.9% [Normal Saline] 10 ml IV DAILY - Plan Plan:: I have seen and evaluated the patient and agree with the residents note unless specified in my note
[2021-01-23] MEDS: REMDESIVIR 100 MG in Sodium Chloride 0.9% 100 ML IV SCH (16:09)
[2021-01-24] MEDS: Albuterol/Ipratropium 4 GM Inhalation Spray INH SCH ×6 (01:06→20:47)
[2021-01-24 07:19] LABS: BLOOD UREA NITROGEN,BUN 18 mg/dL (7.0-18.0); CARBON DIOXIDE,CO2 25.9 mmol/L (21.0-32.0); CHLORIDE,CL 103 mmol/L (98-107); GLUCOSE RANDOM 98 mg/dL (74-106); SODIUM,NA 141 mmol/L (136-145)
--- NOTE | 2021-01-24 09:09 | PCM.PN ---
<Tanvi Lazar - Last Filed: 01/24/21 11:10> - General Info Date of Service: 01/24/21 Admission Dx/Problem (Free Text): Admission Diagnosis/Problem Admission Diagnosis/Problem Respiratory failure with hypoxia Subjective Update: 60-year-old female admitted for Covid pneumonia, day 3 of admission. Patient is receiving dexamethasone, remdesivir, Lovenox, Combivent. Patient states she slept well last night and feels like she is improving. She denies cough and pain. She continues to have shortness of breath with ambulation only. Her oxygen requirement is down to 2.5 L nasal cannula. Patient is eating well. No issues with urination. Patient has had a bowel movement. Denies chest pain, palpitations, nausea, vomiting, diarrhea, headaches, dizziness or weakness. - Review of Systems General: Denies: Fever, Chills HEENT: Denies: Headaches, Sore Throat Pulmonary: Reports: Shortness of Breath. Denies: Pleuritic Chest Pain, Cough, Sputum Cardiovascular: Reports: Dyspnea on Exertion. Denies: Chest Pain, Palpitations Gastrointestinal: Denies: Abdominal Pain, Constipation, Decreased Appetite, Diarrhea, Nausea, Vomiting Genitourinary: Denies: Dysuria Musculoskeletal: Denies: Leg Pain Skin: Denies: Rash Neurological: Denies: Confusion, Dizziness, Headache, Numbness, Paresthesia - Patient Data Vitals - Most Recent: Last Vital Signs Temp 96.0 F L 01/24/21 07:00 Pulse 49 L 01/24/21 07:00 Resp 20 01/24/21 07:00 BP 135/80 01/24/21 07:00 Pulse Ox 94 L 01/24/21 07:00 Weight - Most Recent: 76.566 kg I&O - Last 24 Hours: Intake & Output 01/23/21 01/24/21 01/24/21 22:59 06:59 14:59 Intake Total 480 800 Balance 480 800 Lab Results Last 24 Hours: Laboratory Results - last 24 hr 01/23/21 01/24/21 01/24/21 Range/Units 05:59 06:21 06:21 WBC 17.66 H (4.0-11.0) K/uL RBC 4.39 (4.30-5.90) M/uL Hgb 13.3 (12.0-16.0) g/dL Hct 40.3 (36.0-46.0) % MCV 91.8 (80.0-98.0) fL MCH 30.3 (27.0-32.0) pg MCHC 33.0 (31.0-37.0) g/dL RDW Std Deviation 44.9 (28.0-62.0) fl RDW Coeff of Arely 13 (11.0-15.0) % Plt Count 351 (150-400) K/uL MPV 12.10 H (7.40-12.00) fL Neut % (Auto) 78.1 (48.0-80.0) % Lymph % (Auto) 14.2 L (16.0-40.0) % [place] % (Auto) 7.6 (0.0-15.0) % Eos % (Auto) 0.0 (0.0-7.0) % Baso % (Auto) 0.1 (0.0-1.5) % Neut # (Auto) 13.8 H (1.4-5.7) K/uL Lymph # (Auto) 2.5 H (0.6-2.4) K/uL [place] # (Auto) 1.3 H (0.0-0.8) K/uL Eos # (Auto) 0.0 (0.0-0.7) K/uL Baso # (Auto) 0.0 (0.0-0.1) K/uL Nucleated RBC % 0.0 /100WBC Nucleated RBCs # 0 K/uL Sodium 141 (136-145) mmol/L Potassium 4.0 (3.5-5.1) mmol/L Chloride 103 (98-107) mmol/L Carbon Dioxide 25.9 (21.0-32.0) mmol/L BUN 18 (7.0-18.0) mg/dL Creatinine 0.8 (0.6-1.0) mg/dL Est Cr Clr Drug Dosing 57.84 mL/min Estimated GFR (MDRD) > 60.0 ml/min Glucose 98 (74-106) mg/dL Calcium 8.7 (8.5-10.1) mg/dL Total Bilirubin 0.5 (0.2-1.0) mg/dL AST 35 (15-37) IU/L ALT 44 (14-63) IU/L Alkaline Phosphatase 64 (46-116) U/L C-Reactive Protein 6.50 H (0.00-0.90) mg/dL Total Protein 7.2 (6.4-8.2) g/dL Albumin 2.8 L (3.4-5.0) g/dL Globulin 4.4 H (2.6-4.0) g/dL Albumin/Globulin Ratio 0.6 L (0.9-1.6) Maged Results Last 24 Hours: Microbiology 01/22/21 00:40 Aerobic Blood Culture - Preliminary Blood - Venous - Lab Draw NO GROWTH AFTER 2 DAYS Anaerobic Blood Culture - Preliminary NO GROWTH AFTER 2 DAYS 01/22/21 00:30 Aerobic Blood Culture - Preliminary Blood - Venous NO GROWTH AFTER 2 DAYS Anaerobic Blood Culture - Final Med Orders - Current: Current Medications Acetaminophen (Acetaminophen 325 Mg Tab) 650 mg PO Q4H PRN PRN Reason: Pain/Fever Albuterol/Ipratropium (Albuterol/Ipratropium 3.0-0.5 Mg/3 Ml Neb Soln) 3 ml NEB Q4HRRT PRN PRN Reason: Shortness of Breath Last Admin: 01/22/21 20:52 Dose: 3 ml Documented by: Albuterol/Ipratropium (Albuterol/Ipratropium 4 Gm Inhalation [place]) 0 gm INH Q4H [facility] Last Admin: 01/24/21 08:06 Dose: 1 puff Documented by: Dexamethasone (Dexamethasone 4 Mg Tab) 6 mg PO DAILY [facility] Last Admin: 01/23/21 10:06 Dose: 6 mg Documented by: Docusate Sodium (Docusate Sodium 100 Mg Cap) 100 mg PO DAILY PRN PRN Reason: Constipation Last Admin: 01/22/21 20:53 Dose: 100 mg Documented by: Enoxaparin Sodium (Enoxaparin 40 Mg/0.4 Ml Syringe) 40 mg SUBCUT DAILY [facility] Last Admin: 01/23/21 10:09 Dose: 40 mg Documented by: Guaifenesin/Dextromethorphan (Guaifenesin/Dextromethorphan 100-10 Mg/5 Ml Soln 10 Ml Cup) 10 ml PO Q4H PRN PRN Reason: Cough Remdesivir 100 mg/ Sodium (Chloride) 100 mls @ 100 mls/hr IV Q24H [facility] Stop: 01/25/21 17:59 Last Admin: 01/23/21 16:09 Dose: 100 mls/hr Documented by: Pantoprazole Sodium 40 mg/ (Sodium Chloride) 10 mls @ 300 mls/hr IV DAILY [facility] Lisinopril (Lisinopril 10 Mg Tab) 10 mg PO DAILY [facility] Last Admin: 01/23/21 10:09 Dose: 10 mg Documented by: Morphine Sulfate (Morphine 2 Mg/Ml Syringe) 1 mg IVPUSH Q6H PRN PRN Reason: Pain Ondansetron HCl (Ondansetron 4 Mg/2 Ml Sdv) 4 mg IVPUSH Q4H PRN PRN Reason: Nausea/Vomiting Sodium Chloride (Sodium Chloride 0.9% 10 Ml Syringe) 10 ml FLUSH ASDIRECTED PRN PRN Reason: Keep Vein Open Last Admin: 01/22/21 00:36 Dose: 10 ml Documented by: Sodium Chloride (Sodium Chloride 0.9% 2.5 Ml Syringe) 2.5 ml FLUSH ASDIRECTED PRN PRN Reason: Keep Vein Open Last Admin: 01/22/21 00:36 Dose: 2.5 ml Documented by: Discontinued Medications Azithromycin (Azithromycin 250 Mg Tab) 500 mg PO Q24H ONE Stop: 01/21/21 23:36 Last Admin: 01/21/21 23:42 Dose: 500 mg Documented by: Dexamethasone (Dexamethasone 10 Mg/Ml Sdv) 10 mg IVPUSH ONETIME ONE Stop: 01/22/21 00:14 Last Admin: 01/22/21 00:32 Dose: 10 mg Documented by: Remdesivir 200 mg/ Sodium (Chloride) 250 mls @ 250 mls/hr IV ONETIME ONE Stop: 01/22/21 00:14 Last Admin: 01/22/21 00:58 Dose: 250 mls/hr Documented by: Pantoprazole Sodium 40 mg/ (Sodium Chloride) 10 mls @ 300 mls/hr IV DAILY [facility] Last Admin: 01/23/21 10:08 Dose: 300 mls/hr Documented by: Ibuprofen (Ibuprofen 600 Mg Tab) 600 mg PO ONETIME ONE Stop: 01/21/21 23:36 Last Admin: 01/21/21 23:41 Dose: 600 mg Documented by: Pantoprazole Sodium (Pantoprazole 40 Mg Vial) Confirm Administered Dose 40 mg .ROUTE .STK-MED ONE Stop: 01/22/21 09:10 Last Admin: 01/22/21 09:33 Dose: 40 mg Documented by: Pantoprazole Sodium (Pantoprazole 40 Mg Vial) Confirm Administered Dose 40 mg .ROUTE .STK-MED ONE Stop: 01/23/21 10:00 Last Admin: 01/23/21 10:08 Dose: Not Given Documented by: Tramadol HCl (Tramadol 50 Mg Tab) 50 mg PO ONETIME ONE Stop: 01/21/21 23:36 Last Admin: 01/21/21 23:42 Dose: 50 mg Documented by: - Exam Quality Assessment: Supplemental Oxygen General: Alert, Oriented, Cooperative, No Acute Distress HEENT: Pupils Equal, Pupils Reactive Neck: Supple, Trachea Midline Lungs: Crackles Cardiovascular: Regular Rate, Regular Rhythm GI/Abdominal Exam: Normal Bowel Sounds, Soft, Non-Tender Extremities: Normal Inspection, Normal Range of Motion, Non-Tender, No Pedal Edema. No: Terry's Sign Peripheral Pulses: 2+: Dorsalis Pedis (L), Dorsalis Pedis (R) Skin: Warm, Dry, Intact Neurological: No New Focal Deficit - Patient Data Lab Results Last 24 hrs: Laboratory Results - last 24 hr 01/23/21 01/24/21 01/24/21 Range/Units 05:59 06:21 06:21 WBC 17.66 H (4.0-11.0) K/uL RBC 4.39 (4.30-5.90) M/uL Hgb 13.3 (12.0-16.0) g/dL Hct 40.3 (36.0-46.0) % MCV 91.8 (80.0-98.0) fL MCH 30.3 (27.0-32.0) pg MCHC 33.0 (31.0-37.0) g/dL RDW Std Deviation 44.9 (28.0-62.0) fl RDW Coeff of Arely 13 (11.0-15.0) % Plt Count 351 (150-400) K/uL MPV 12.10 H (7.40-12.00) fL Neut % (Auto) 78.1 (48.0-80.0) % Lymph % (Auto) 14.2 L (16.0-40.0) % [place] % (Auto) 7.6 (0.0-15.0) % Eos % (Auto) 0.0 (0.0-7.0) % Baso % (Auto) 0.1 (0.0-1.5) % Neut # (Auto) 13.8 H (1.4-5.7) K/uL Lymph # (Auto) 2.5 H (0.6-2.4) K/uL [place] # (Auto) 1.3 H (0.0-0.8) K/uL Eos # (Auto) 0.0 (0.0-0.7) K/uL Baso # (Auto) 0.0 (0.0-0.1) K/uL Nucleated RBC % 0.0 /100WBC Nucleated RBCs # 0 K/uL Sodium 141 (136-145) mmol/L Potassium 4.0 (3.5-5.1) mmol/L Chloride 103 (98-107) mmol/L Carbon Dioxide 25.9 (21.0-32.0) mmol/L BUN 18 (7.0-18.0) mg/dL Creatinine 0.8 (0.6-1.0) mg/dL Est Cr Clr Drug Dosing 57.84 mL/min Estimated GFR (MDRD) > 60.0 ml/min Glucose 98 (74-106) mg/dL Calcium 8.7 (8.5-10.1) mg/dL Total Bilirubin 0.5 (0.2-1.0) mg/dL AST 35 (15-37) IU/L ALT 44 (14-63) IU/L Alkaline Phosphatase 64 (46-116) U/L C-Reactive Protein 6.50 H (0.00-0.90) mg/dL Total Protein 7.2 (6.4-8.2) g/dL Albumin 2.8 L (3.4-5.0) g/dL Globulin 4.4 H (2.6-4.0) g/dL Albumin/Globulin Ratio 0.6 L (0.9-1.6) Result Diagrams: 01/24/21 06:21 01/24/21 06:21 Maged Results Last 24 hrs: Microbiology 01/22/21 00:40 Aerobic Blood Culture - Preliminary Blood - Venous - Lab Draw NO GROWTH AFTER 2 DAYS Anaerobic Blood Culture - Preliminary NO GROWTH AFTER 2 DAYS 01/22/21 00:30 Aerobic Blood Culture - Preliminary Blood - Venous NO GROWTH AFTER 2 DAYS Anaerobic Blood Culture - Final Sepsis Event Note - Evaluation Sepsis Screening Result: No Definite Risk - Focused Exam Vital Signs: Vital Signs Temp Pulse Resp BP Pulse Ox 01/24/21 07:00 96.0 F L 49 L 20 135/80 94 L 01/24/21 03:00 96.6 F L 48 L 16 113/59 L 93 L 01/23/21 23:00 96.9 F 56 L 17 125/78 93 L - Problem List & Annotations (1) Acute respiratory failure with hypoxia SNOMED Code(s): 82077117, 643993542 Code(s): J96.01 - ACUTE RESPIRATORY FAILURE WITH HYPOXIA Status: Acute Current Visit: Yes (2) Pneumonia due to COVID-19 virus SNOMED Code(s): 331112058580540536 Code(s): U07.1 - COVID-19; J12.82 - PNEUMONIA DUE TO CORONAVIRUS DISEASE 2019 Status: Acute Current Visit: Yes - Problem List Review Problem List Initiated/Reviewed/Updated: Yes - My Orders Last 24 Hours: My Active Orders 01/25/21 05:11 CBC WITH AUTO DIFF [HEME] DAILY COMPREHENSIVE METABOLIC PN,CMP [CHEM] DAILY 01/26/21 05:11 CBC WITH AUTO DIFF [HEME] DAILY COMPREHENSIVE METABOLIC PN,CMP [CHEM] DAILY 01/27/21 05:11 CBC WITH AUTO DIFF [HEME] DAILY COMPREHENSIVE METABOLIC PN,CMP [CHEM] DAILY 01/28/21 05:11 CBC WITH AUTO DIFF [HEME] DAILY COMPREHENSIVE METABOLIC PN,CMP [CHEM] DAILY 01/29/21 05:11 CBC WITH AUTO DIFF [HEME] DAILY COMPREHENSIVE METABOLIC PN,CMP [CHEM] DAILY - Plan Plan:: Covid pneumonia: Remdesivir. Final dose on 01/25/2021. Albuterol/ipratropium nebulizer. Combivent. Dexamethasone. Lovenox. Guaifenesin/dextromethorphan. Protonix. Zofran. Oxygen therapy. Wean as tolerated. Incentive spirometry encouraged. <Chad Alvarez - Last Filed: 01/24/21 14:25> - Patient Data Vitals - Most Recent: Last Vital Signs Temp 35.8 C L 10/20/21 11:00 Pulse 52 L 01/24/21 11:00 Resp 16 01/24/21 11:00 BP 115/70 01/24/21 11:00 Pulse Ox 92 L 01/24/21 11:00 I&O - Last 24 Hours: Intake & Output 01/23/21 01/24/21 01/24/21 22:59 06:59 14:59 Intake Total 480 800 Balance 480 800 Lab Results Last 24 Hours: Laboratory Results - last 24 hr 01/24/21 01/24/21 Range/Units 06:21 06:21 WBC 17.66 H (4.0-11.0) K/uL RBC 4.39 (4.30-5.90) M/uL Hgb 13.3 (12.0-16.0) g/dL Hct 40.3 (36.0-46.0) % MCV 91.8 (80.0-98.0) fL MCH 30.3 (27.0-32.0) pg MCHC 33.0 (31.0-37.0) g/dL RDW Std Deviation 44.9 (28.0-62.0) fl RDW Coeff of Arely 13 (11.0-15.0) % Plt Count 351 (150-400) K/uL MPV 12.10 H (7.40-12.00) fL Neut % (Auto) 78.1 (48.0-80.0) % Lymph % (Auto) 14.2 L (16.0-40.0) % [place] % (Auto) 7.6 (0.0-15.0) % Eos % (Auto) 0.0 (0.0-7.0) % Baso % (Auto) 0.1 (0.0-1.5) % Neut # (Auto) 13.8 H (1.4-5.7) K/uL Lymph # (Auto) 2.5 H (0.6-2.4) K/uL [place] # (Auto) 1.3 H (0.0-0.8) K/uL Eos # (Auto) 0.0 (0.0-0.7) K/uL Baso # (Auto) 0.0 (0.0-0.1) K/uL Nucleated RBC % 0.0 /100WBC Nucleated RBCs # 0 K/uL Sodium 141 (136-145) mmol/L Potassium 4.0 (3.5-5.1) mmol/L Chloride 103 (98-107) mmol/L Carbon Dioxide 25.9 (21.0-32.0) mmol/L BUN 18 (7.0-18.0) mg/dL Creatinine 0.8 (0.6-1.0) mg/dL Est Cr Clr Drug Dosing 57.84 mL/min Estimated GFR (MDRD) > 60.0 ml/min Glucose 98 (74-106) mg/dL Calcium 8.7 (8.5-10.1) mg/dL Total Bilirubin 0.5 (0.2-1.0) mg/dL AST 35 (15-37) IU/L ALT 44 (14-63) IU/L Alkaline Phosphatase 64 (46-116) U/L Total Protein 7.2 (6.4-8.2) g/dL Albumin 2.8 L (3.4-5.0) g/dL Globulin 4.4 H (2.6-4.0) g/dL Albumin/Globulin Ratio 0.6 L (0.9-1.6) Maged Results Last 24 Hours: Microbiology 01/22/21 00:40 Aerobic Blood Culture - Preliminary Blood - Venous - Lab Draw NO GROWTH AFTER 2 DAYS Anaerobic Blood Culture - Preliminary NO GROWTH AFTER 2 DAYS 01/22/21 00:30 Aerobic Blood Culture - Preliminary Blood - Venous NO GROWTH AFTER 2 DAYS Anaerobic Blood Culture - Final Med Orders - Current: Current Medications Acetaminophen (Acetaminophen 325 Mg Tab) 650 mg PO Q4H PRN PRN Reason: Pain/Fever Albuterol/Ipratropium (Albuterol/Ipratropium 3.0-0.5 Mg/3 Ml Neb Soln) 3 ml NEB Q4HRRT PRN PRN Reason: Shortness of Breath Last Admin: 01/22/21 20:52 Dose: 3 ml Documented by: Albuterol/Ipratropium (Albuterol/Ipratropium 4 Gm Inhalation [place]) 0 gm INH Q4H [facility] Last Admin: 01/24/21 09:44 Dose: 1 puff Documented by: Dexamethasone (Dexamethasone 4 Mg Tab) 6 mg PO DAILY [facility] Last Admin: 01/24/21 09:43 Dose: 6 mg Documented by: Docusate Sodium (Docusate Sodium 100 Mg Cap) 100 mg PO DAILY PRN PRN Reason: Constipation Last Admin: 01/22/21 20:53 Dose: 100 mg Documented by: Enoxaparin Sodium (Enoxaparin 40 Mg/0.4 Ml Syringe) 40 mg SUBCUT DAILY [facility] Last Admin: 01/24/21 09:43 Dose: 40 mg Documented by: Guaifenesin/Dextromethorphan (Guaifenesin/Dextromethorphan 100-10 Mg/5 Ml Soln 10 Ml Cup) 10 ml PO Q4H PRN PRN Reason: Cough Remdesivir 100 mg/ Sodium (Chloride) 100 mls @ 100 mls/hr IV Q24H [facility] Stop: 01/25/21 17:59 Last Admin: 01/23/21 16:09 Dose: 100 mls/hr Documented by: Pantoprazole Sodium 40 mg/ (Sodium Chloride) 10 mls @ 300 mls/hr IV DAILY [facility] Last Admin: 01/24/21 09:43 Dose: 300 mls/hr Documented by: Lisinopril (Lisinopril 10 Mg Tab) 10 mg PO DAILY [facility] Last Admin: 01/24/21 09:43 Dose: 10 mg Documented by: Ondansetron HCl (Ondansetron 4 Mg/2 Ml Sdv) 4 mg IVPUSH Q4H PRN PRN Reason: Nausea/Vomiting Sodium Chloride (Sodium Chloride 0.9% 10 Ml Syringe) 10 ml FLUSH ASDIRECTED PRN PRN Reason: Keep Vein Open Last Admin: 01/22/21 00:36 Dose: 10 ml Documented by: Sodium Chloride (Sodium Chloride 0.9% 2.5 Ml Syringe) 2.5 ml FLUSH ASDIRECTED PRN PRN Reason: Keep Vein Open Last Admin: 01/22/21 00:36 Dose: 2.5 ml Documented by: Discontinued Medications Azithromycin (Azithromycin 250 Mg Tab) 500 mg PO Q24H ONE Stop: 01/21/21 23:36 Last Admin: 01/21/21 23:42 Dose: 500 mg Documented by: Dexamethasone (Dexamethasone 10 Mg/Ml Sdv) 10 mg IVPUSH ONETIME ONE Stop: 01/22/21 00:14 Last Admin: 01/22/21 00:32 Dose: 10 mg Documented by: Remdesivir 200 mg/ Sodium (Chloride) 250 mls @ 250 mls/hr IV ONETIME ONE Stop: 01/22/21 00:14 Last Admin: 01/22/21 00:58 Dose: 250 mls/hr Documented by: Pantoprazole Sodium 40 mg/ (Sodium Chloride) 10 mls @ 300 mls/hr IV DAILY [facility] Last Admin: 01/23/21 10:08 Dose: 300 mls/hr Documented by: Ibuprofen (Ibuprofen 600 Mg Tab) 600 mg PO ONETIME ONE Stop: 01/21/21 23:36 Last Admin: 01/21/21 23:41 Dose: 600 mg Documented by: Morphine Sulfate (Morphine 2 Mg/Ml Syringe) 1 mg IVPUSH Q6H PRN PRN Reason: Pain Pantoprazole Sodium (Pantoprazole 40 Mg Vial) Confirm Administered Dose 40 mg .ROUTE .STK-MED ONE Stop: 01/22/21 09:10 Last Admin: 01/22/21 09:33 Dose: 40 mg Documented by: Pantoprazole Sodium (Pantoprazole 40 Mg Vial) Confirm Administered Dose 40 mg .ROUTE .STK-MED ONE Stop: 01/23/21 10:00 Last Admin: 01/23/21 10:08 Dose: Not Given Documented by: Tramadol HCl (Tramadol 50 Mg Tab) 50 mg PO ONETIME ONE Stop: 01/21/21 23:36 Last Admin: 01/21/21 23:42 Dose: 50 mg Documented by: - Patient Data Lab Results Last 24 hrs: Laboratory Results - last 24 hr 01/24/21 01/24/21 Range/Units 06:21 06:21 WBC 17.66 H (4.0-11.0) K/uL RBC 4.39 (4.30-5.90) M/uL Hgb 13.3 (12.0-16.0) g/dL Hct 40.3 (36.0-46.0) % MCV 91.8 (80.0-98.0) fL MCH 30.3 (27.0-32.0) pg MCHC 33.0 (31.0-37.0) g/dL RDW Std Deviation 44.9 (28.0-62.0) fl RDW Coeff of Arely 13 (11.0-15.0) % Plt Count 351 (150-400) K/uL MPV 12.10 H (7.40-12.00) fL Neut % (Auto) 78.1 (48.0-80.0) % Lymph % (Auto) 14.2 L (16.0-40.0) % [place] % (Auto) 7.6 (0.0-15.0) % Eos % (Auto) 0.0 (0.0-7.0) % Baso % (Auto) 0.1 (0.0-1.5) % Neut # (Auto) 13.8 H (1.4-5.7) K/uL Lymph # (Auto) 2.5 H (0.6-2.4) K/uL [place] # (Auto) 1.3 H (0.0-0.8) K/uL Eos # (Auto) 0.0 (0.0-0.7) K/uL Baso # (Auto) 0.0 (0.0-0.1) K/uL Nucleated RBC % 0.0 /100WBC Nucleated RBCs # 0 K/uL Sodium 141 (136-145) mmol/L Potassium 4.0 (3.5-5.1) mmol/L Chloride 103 (98-107) mmol/L Carbon Dioxide 25.9 (21.0-32.0) mmol/L BUN 18 (7.0-18.0) mg/dL Creatinine 0.8 (0.6-1.0) mg/dL Est Cr Clr Drug Dosing 57.84 mL/min Estimated GFR (MDRD) > 60.0 ml/min Glucose 98 (74-106) mg/dL Calcium 8.7 (8.5-10.1) mg/dL Total Bilirubin 0.5 (0.2-1.0) mg/dL AST 35 (15-37) IU/L ALT 44 (14-63) IU/L Alkaline Phosphatase 64 (46-116) U/L Total Protein 7.2 (6.4-8.2) g/dL Albumin 2.8 L (3.4-5.0) g/dL Globulin 4.4 H (2.6-4.0) g/dL Albumin/Globulin Ratio 0.6 L (0.9-1.6) Result Diagrams: 01/24/21 06:21 01/24/21 06:21 Maged Results Last 24 hrs: Microbiology 01/22/21 00:40 Aerobic Blood Culture - Preliminary Blood - Venous - Lab Draw NO GROWTH AFTER 2 DAYS Anaerobic Blood Culture - Preliminary NO GROWTH AFTER 2 DAYS 01/22/21 00:30 Aerobic Blood Culture - Preliminary Blood - Venous NO GROWTH AFTER 2 DAYS Anaerobic Blood Culture - Final Sepsis Event Note - Focused Exam Vital Signs: Vital Signs Temp Pulse Resp BP BP Pulse Ox 01/24/21 11:00 35.8 C L 52 L 16 115/70 92 L 01/24/21 09:43 135/80 01/24/21 07:00 35.6 C L 49 L 20 135/80 94 L 01/24/21 03:00 35.9 C L 48 L 16 113/59 L 93 L - My Orders Last 24 Hours: My Active Orders 01/24/21 09:00 Pantoprazole [ProTONIX IV] 40 mg Sodium Chloride 0.9% [Normal Saline] 10 ml IV DAILY - Plan Plan:: I have seen and evaluated the patient and agree with the residents note unless specified in my note
[2021-01-24] MEDS: Lisinopril 10 MG Tab PO SCH (09:43)
[2021-01-24] MEDS: Dexamethasone 4 MG Tab PO SCH (09:43)
[2021-01-24] MEDS: Enoxaparin 40 MG/0.4 ML Syringe SUBCUT SCH (09:43)
[2021-01-24] MEDS: Pantoprazole 40 MG in Sodium Chloride 0.9% 10 ML IV SCH (09:43)
[2021-01-24] MEDS: REMDESIVIR 100 MG in Sodium Chloride 0.9% 100 ML IV SCH (16:11)
[2021-01-25] MEDS: Albuterol/Ipratropium 4 GM Inhalation Spray INH SCH ×3 (01:44→10:40)
[2021-01-25 06:39] LABS: BLOOD UREA NITROGEN,BUN 17 mg/dL (7.0-18.0); CARBON DIOXIDE,CO2 26.5 mmol/L (21.0-32.0); CHLORIDE,CL 104 mmol/L (98-107); GLUCOSE RANDOM 101 mg/dL (74-106); POTASSIUM,K 4.6 mmol/L (3.5-5.1); SODIUM,NA 141 mmol/L (136-145)
[2021-01-25] MEDS: Enoxaparin 40 MG/0.4 ML Syringe SUBCUT SCH (08:15)
[2021-01-25] MEDS: Dexamethasone 4 MG Tab PO SCH (08:15)
[2021-01-25] MEDS: Pantoprazole 40 MG in Sodium Chloride 0.9% 10 ML IV SCH (08:16)
[2021-01-25] MEDS: Lisinopril 10 MG Tab PO SCH (08:16)
[2021-01-25] MEDS ORDERED: REMDESIVIR 100 MG in Sodium Chloride 0.9% 100 ML IV SCH (09:00)
--- NOTE | 2021-01-25 11:28 | PCM.DCSUM1 ---
<Tanvi Lazar - Last Filed: 01/25/21 11:24> Discharge Summary - Hospital Course Free Text/Narrative:: 60-year-old female with history of hypertension was diagnosed with Covid 5 days prior to admission. She presented to the ER with significant shortness of breath, and pain with coughing. Patient denied fever, chills, nausea, vomiting, diarrhea, changes in smell or taste. Patient's cough has been productive of white sputum. Patient tested positive for Covid in the ER. CXR: Multifocal bi lateral airspace disease consistent with Covid pneumonia. Oxygen percent saturation 84% on room air. 97% on 5 L nasal cannula. Lab work was unremarkable. Patient required 5 L nasal cannula. She received dexamethasone, remdesivir, Lovenox and supportive therapy. Patient completed remdesivir therapy. Her oxygen was weaned down and she is on room air. Patient is stable and ready for discharge. On discharge WBC 12, Hgb 13, BMP unremarkable. AST 41, ALT 55. Vital signs stable. - Discharge Data Discharge Date: 01/25/21 Discharge Disposition: Home, Self-Care 01 Condition: Good - Referral to Home Health Primary Care Physician: PCP None - Discharge Diagnosis/Problem(s) (1) Acute respiratory failure with hypoxia SNOMED Code(s): 06743564, [id number] ICD Code: J96.01 - ACUTE RESPIRATORY FAILURE WITH HYPOXIA Status: Acute (2) Pneumonia due to COVID-19 virus SNOMED Code(s): 552663747716531844 ICD Code: U07.1 - COVID-19; J12.82 - PNEUMONIA DUE TO CORONAVIRUS DISEASE 2019 Status: Acute - Patient Instructions Diet: Usual Diet as Tolerated Activity: As Tolerated Notify Provider of: Fever, Increased Pain Other/Special Instructions: You were admitted for Covid pneumonia and required oxygen. You completed therapy with steroids and remdesivir for Covid pneumonia. You are now on room air. You have completed all of your medications and will not be discharged with any antibiotics. If you experience increased difficulty breathing, fever, chest pain, palpitations, lightheadedness, loss of consciousness please seek medical attention immediately. Continue taking your home medicine for high blood pressure. It is advised that you quarantine for a total of 20 days since symptom onset as per CDC recommendations. - Discharge Plan *PRESCRIPTION DRUG MONITORING PROGRAM REVIEWED*: Not Applicable *COPY OF PRESCRIPTION DRUG MONITORING REPORT IN PATIENT DRE: Not Applicable Home Medications: Home Meds lisinopriL [Zestril] 10 mg PO QAM 05/02/19 [History] Oxygen Therapy Mode: Room Air Patient Handouts: COVID-19: What Your Test Results Mean - [facility] (09/04/2019), Shortness of Breath, Adult, [id number], 10 Things You Can Do to Manage Your COVID-19 Symptoms at Home - [facility] (10/20/2020), COVID-19: How to Protect Yourself and Others - [facility], COVID-19: Quarantine vs. Isolation - [facility] (03/23/2020) Referrals: Sonia Hernandez PA [Physician Quarry Worker] - 02/12/21 1:30 pm - Discharge Summary/Plan Comment DC Time >30 min.: Yes Total # of Minutes for Discharge Time: 45 - General Info Admission Dx/Problem (Free Text: Admission Diagnosis/Problem Admission Diagnosis/Problem Respiratory failure with hypoxia - Review of Systems General: Denies: Fever, Chills Pulmonary: Denies: Shortness of Breath, Cough, Sputum Cardiovascular: Reports: Dyspnea on Exertion. Denies: Chest Pain, Palpitations Gastrointestinal: Denies: Abdominal Pain, Constipation, Decreased Appetite, Diarrhea, Melena, Nausea, Vomiting Genitourinary: Denies: Dysuria Musculoskeletal: Denies: Leg Pain, Joint Pain, Joint Swelling Skin: Denies: Rash Neurological: Denies: Confusion, Dizziness, Headache, Numbness, Paresthesia - Patient Data Vitals - Most Recent: Last Vital Signs Temp 96.7 F L 01/25/21 08:13 Pulse 51 L 01/25/21 08:13 Resp 17 01/25/21 08:13 BP 135/81 01/25/21 08:16 Pulse Ox 90 L 01/25/21 08:13 Weight - Most Recent: 76.566 kg I&O - Last 24 hours: Intake & Output 01/24/21 01/25/21 01/25/21 22:59 06:59 14:59 Intake Total 500 220 Balance 500 220 Lab Results - Last 24 hrs: Laboratory Results - last 24 hr 01/23/21 01/25/21 01/25/21 Range/Units 05:59 05:37 05:37 WBC 12.07 H (4.0-11.0) K/uL RBC 4.21 L (4.30-5.90) M/uL Hgb 12.8 (12.0-16.0) g/dL Hct 38.6 (36.0-46.0) % MCV 91.7 (80.0-98.0) fL MCH 30.4 (27.0-32.0) pg MCHC 33.2 (31.0-37.0) g/dL RDW Std Deviation 44.2 (28.0-62.0) fl RDW Coeff of Arely 13 (11.0-15.0) % Plt Count 361 (150-400) K/uL MPV 12.20 H (7.40-12.00) fL Add Manual Diff YES Neutrophils % (Manual) 68 (48.0-80.0) % Lymphocytes % (Manual) 21 (16.0-40.0) % Monocytes % (Manual) 11 (0.0-15.0) % Nucleated RBC % 0.0 /100WBC Absolute Seg Neuts 8.2 H (1.4-5.7) Lymphocytes # (Manual) 2.5 H (0.6-2.4) Monocytes # (Manual) 1.3 H (0.0-0.8) Nucleated RBCs # 0 K/uL Sodium 141 (136-145) mmol/L Potassium 4.6 (3.5-5.1) mmol/L Chloride 104 (98-107) mmol/L Carbon Dioxide 26.5 (21.0-32.0) mmol/L BUN 17 (7.0-18.0) mg/dL Creatinine 0.8 (0.6-1.0) mg/dL Est Cr Clr Drug Dosing 57.84 mL/min Estimated GFR (MDRD) > 60.0 ml/min Glucose 101 (74-106) mg/dL Calcium 8.2 L (8.5-10.1) mg/dL Total Bilirubin 0.4 (0.2-1.0) mg/dL AST 41 H (15-37) IU/L ALT 55 (14-63) IU/L Alkaline Phosphatase 58 (46-116) U/L Total Protein 6.4 (6.4-8.2) g/dL Albumin 2.6 L (3.4-5.0) g/dL Globulin 3.8 (2.6-4.0) g/dL Albumin/Globulin Ratio 0.7 L (0.9-1.6) Procalcitonin <0.05 ng/mL MC Results - Last 24 hrs: Microbiology 01/22/21 00:40 Aerobic Blood Culture - Preliminary Blood - Venous - Lab Draw NO GROWTH AFTER 3 DAYS Anaerobic Blood Culture - Preliminary NO GROWTH AFTER 3 DAYS 01/22/21 00:30 Aerobic Blood Culture - Preliminary Blood - Venous NO GROWTH AFTER 3 DAYS Anaerobic Blood Culture - Final Med Orders - Current: Current Medications Acetaminophen (Acetaminophen 325 Mg Tab) 650 mg PO Q4H PRN PRN Reason: Pain/Fever Albuterol/Ipratropium (Albuterol/Ipratropium 3.0-0.5 Mg/3 Ml Neb Soln) 3 ml NEB Q4HRRT PRN PRN Reason: Shortness of Breath Last Admin: 01/22/21 20:52 Dose: 3 ml Documented by: Albuterol/Ipratropium (Albuterol/Ipratropium 4 Gm Inhalation Shannon) 0 gm INH Q4H [facility] Last Admin: 01/25/21 10:40 Dose: 1 puff Documented by: Dexamethasone (Dexamethasone 4 Mg Tab) 6 mg PO DAILY [facility] Last Admin: 01/25/21 08:15 Dose: 6 mg Documented by: Docusate Sodium (Docusate Sodium 100 Mg Cap) 100 mg PO DAILY PRN PRN Reason: Constipation Last Admin: 01/22/21 20:53 Dose: 100 mg Documented by: Enoxaparin Sodium (Enoxaparin 40 Mg/0.4 Ml Syringe) 40 mg SUBCUT DAILY [facility] Last Admin: 01/25/21 08:15 Dose: 40 mg Documented by: Guaifenesin/Dextromethorphan (Guaifenesin/Dextromethorphan 100-10 Mg/5 Ml Soln 10 Ml Cup) 10 ml PO Q4H PRN PRN Reason: Cough Pantoprazole Sodium 40 mg/ (Sodium Chloride) 10 mls @ 300 mls/hr IV DAILY [facility] Last Admin: 01/25/21 08:16 Dose: 300 mls/hr Documented by: Lisinopril (Lisinopril 10 Mg Tab) 10 mg PO DAILY [facility] Last Admin: 01/25/21 08:16 Dose: 10 mg Documented by: Ondansetron HCl (Ondansetron 4 Mg/2 Ml Sdv) 4 mg IVPUSH Q4H PRN PRN Reason: Nausea/Vomiting Sodium Chloride (Sodium Chloride 0.9% 10 Ml Syringe) 10 ml FLUSH ASDIRECTED PRN PRN Reason: Keep Vein Open Last Admin: 01/22/21 00:36 Dose: 10 ml Documented by: Sodium Chloride (Sodium Chloride 0.9% 2.5 Ml Syringe) 2.5 ml FLUSH ASDIRECTED PRN PRN Reason: Keep Vein Open Last Admin: 01/22/21 00:36 Dose: 2.5 ml Documented by: Discontinued Medications Azithromycin (Azithromycin 250 Mg Tab) 500 mg PO Q24H ONE Stop: 01/21/21 23:36 Last Admin: 01/21/21 23:42 Dose: 500 mg Documented by: Dexamethasone (Dexamethasone 10 Mg/Ml Sdv) 10 mg IVPUSH ONETIME ONE Stop: 01/22/21 00:14 Last Admin: 01/22/21 00:32 Dose: 10 mg Documented by: Remdesivir 200 mg/ Sodium (Chloride) 250 mls @ 250 mls/hr IV ONETIME ONE Stop: 01/22/21 00:14 Last Admin: 01/22/21 00:58 Dose: 250 mls/hr Documented by: Remdesivir 100 mg/ Sodium (Chloride) 100 mls @ 100 mls/hr IV Q24H [facility] Stop: 01/25/21 17:59 Last Admin: 01/24/21 16:11 Dose: 100 mls/hr Documented by: Pantoprazole Sodium 40 mg/ (Sodium Chloride) 10 mls @ 300 mls/hr IV DAILY [facility] Last Admin: 01/23/21 10:08 Dose: 300 mls/hr Documented by: Remdesivir 100 mg/ Sodium (Chloride) 100 mls @ 100 mls/hr IV Q24H [facility] Stop: 01/25/21 09:59 Last Admin: 01/25/21 09:15 Dose: 100 mls/hr Documented by: Ibuprofen (Ibuprofen 600 Mg Tab) 600 mg PO ONETIME ONE Stop: 01/21/21 23:36 Last Admin: 01/21/21 23:41 Dose: 600 mg Documented by: Morphine Sulfate (Morphine 2 Mg/Ml Syringe) 1 mg IVPUSH Q6H PRN PRN Reason: Pain Pantoprazole Sodium (Pantoprazole 40 Mg Vial) Confirm Administered Dose 40 mg .ROUTE .STK-MED ONE Stop: 01/22/21 09:10 Last Admin: 01/22/21 09:33 Dose: 40 mg Documented by: Pantoprazole Sodium (Pantoprazole 40 Mg Vial) Confirm Administered Dose 40 mg .ROUTE .STK-MED ONE Stop: 01/23/21 10:00 Last Admin: 01/23/21 10:08 Dose: Not Given Documented by: Tramadol HCl (Tramadol 50 Mg Tab) 50 mg PO ONETIME ONE Stop: 01/21/21 23:36 Last Admin: 01/21/21 23:42 Dose: 50 mg Documented by: - Exam Quality Assessment: Denies: Supplemental Oxygen General: Reports: Alert, Oriented, Cooperative, No Acute Distress HEENT: Reports: Pupils Equal, Pupils Reactive Neck: Reports: Supple, Trachea Midline Lungs: Reports: Clear to Auscultation, Normal Respiratory Effort Cardiovascular: Reports: Regular Rate, Regular Rhythm GI/Abdominal Exam: Normal Bowel Sounds, Soft, Non-Tender Back Exam: Reports: Normal Inspection, Full Range of Motion Extremities: Normal Inspection, Normal Range of Motion, Non-Tender, No Pedal Edema, Normal Capillary Refill Skin: Reports: Warm, Dry, Intact Neurological: Reports: No New Focal Deficit Psy/Mental Status: Reports: Alert, Normal Affect, Normal Mood <Ken Harris - Last Filed: 01/26/21 14:29> Discharge Summary - Referral to Home Health Primary Care Physician: PCP None - Patient Data Vitals - Most Recent: Last Vital Signs Temp 35.9 C L 01/25/21 08:13 Pulse 49 L 01/25/21 11:20 Resp 16 01/25/21 11:20 BP 134/61 01/25/21 11:20 Pulse Ox 93 L 01/25/21 11:20 MC Results - Last 24 hrs: Microbiology 01/22/21 00:40 Aerobic Blood Culture - Preliminary Blood - Venous - Lab Draw NO GROWTH AFTER 4 DAYS Anaerobic Blood Culture - Preliminary NO GROWTH AFTER 4 DAYS 01/22/21 00:30 Aerobic Blood Culture - Preliminary Blood - Venous NO GROWTH AFTER 4 DAYS Anaerobic Blood Culture - Final Med Orders - Current: Current Medications Discontinued Medications Acetaminophen (Acetaminophen 325 Mg Tab) 650 mg PO Q4H PRN PRN Reason: Pain/Fever Albuterol/Ipratropium (Albuterol/Ipratropium 3.0-0.5 Mg/3 Ml Neb Soln) 3 ml NEB Q4HRRT PRN PRN Reason: Shortness of Breath Last Admin: 01/22/21 20:52 Dose: 3 ml Documented by: Albuterol/Ipratropium (Albuterol/Ipratropium 4 Gm Inhalation Shannon) 0 gm INH Q4H [facility] Last Admin: 01/25/21 10:40 Dose: 1 puff Documented by: Azithromycin (Azithromycin 250 Mg Tab) 500 mg PO Q24H ONE Stop: 01/21/21 23:36 Last Admin: 01/21/21 23:42 Dose: 500 mg Documented by: Dexamethasone (Dexamethasone 10 Mg/Ml Sdv) 10 mg IVPUSH ONETIME ONE Stop: 01/22/21 00:14 Last Admin: 01/22/21 00:32 Dose: 10 mg Documented by: Dexamethasone (Dexamethasone 4 Mg Tab) 6 mg PO DAILY [facility] Last Admin: 01/25/21 08:15 Dose: 6 mg Documented by: Docusate Sodium (Docusate Sodium 100 Mg Cap) 100 mg PO DAILY PRN PRN Reason: Constipation Last Admin: 01/22/21 20:53 Dose: 100 mg Documented by: Enoxaparin Sodium (Enoxaparin 40 Mg/0.4 Ml Syringe) 40 mg SUBCUT DAILY [facility] Last Admin: 01/25/21 08:15 Dose: 40 mg Documented by: Guaifenesin/Dextromethorphan (Guaifenesin/Dextromethorphan 100-10 Mg/5 Ml Soln 10 Ml Cup) 10 ml PO Q4H PRN PRN Reason: Cough Remdesivir 200 mg/ Sodium (Chloride) 250 mls @ 250 mls/hr IV ONETIME ONE Stop: 01/22/21 00:14 Last Admin: 01/22/21 00:58 Dose: 250 mls/hr Documented by: Remdesivir 100 mg/ Sodium (Chloride) 100 mls @ 100 mls/hr IV Q24H [facility] Stop: 01/25/21 17:59 Last Admin: 01/24/21 16:11 Dose: 100 mls/hr Documented by: Pantoprazole Sodium 40 mg/ (Sodium Chloride) 10 mls @ 300 mls/hr IV DAILY [facility] Last Admin: 01/23/21 10:08 Dose: 300 mls/hr Documented by: Pantoprazole Sodium 40 mg/ (Sodium Chloride) 10 mls @ 300 mls/hr IV DAILY [facility] Last Admin: 01/25/21 08:16 Dose: 300 mls/hr Documented by: Remdesivir 100 mg/ Sodium (Chloride) 100 mls @ 100 mls/hr IV Q24H [facility] Stop: 01/25/21 09:59 Last Admin: 01/25/21 09:15 Dose: 100 mls/hr Documented by: Ibuprofen (Ibuprofen 600 Mg Tab) 600 mg PO ONETIME ONE Stop: 01/21/21 23:36 Last Admin: 01/21/21 23:41 Dose: 600 mg Documented by: Lisinopril (Lisinopril 10 Mg Tab) 10 mg PO DAILY [facility] Last Admin: 01/25/21 08:16 Dose: 10 mg Documented by: Morphine Sulfate (Morphine 2 Mg/Ml Syringe) 1 mg IVPUSH Q6H PRN PRN Reason: Pain Ondansetron HCl (Ondansetron 4 Mg/2 Ml Sdv) 4 mg IVPUSH Q4H PRN PRN Reason: Nausea/Vomiting Pantoprazole Sodium (Pantoprazole 40 Mg Vial) Confirm Administered Dose 40 mg .ROUTE .STK-MED ONE Stop: 01/22/21 09:10 Last Admin: 01/22/21 09:33 Dose: 40 mg Documented by: Pantoprazole Sodium (Pantoprazole 40 Mg Vial) Confirm Administered Dose 40 mg .ROUTE .STK-MED ONE Stop: 01/23/21 10:00 Last Admin: 01/23/21 10:08 Dose: Not Given Documented by: Sodium Chloride (Sodium Chloride 0.9% 10 Ml Syringe) 10 ml FLUSH ASDIRECTED PRN PRN Reason: Keep Vein Open Last Admin: 01/22/21 00:36 Dose: 10 ml Documented by: Sodium Chloride (Sodium Chloride 0.9% 2.5 Ml Syringe) 2.5 ml FLUSH ASDIRECTED PRN PRN Reason: Keep Vein Open Last Admin: 01/22/21 00:36 Dose: 2.5 ml Documented by: Tramadol HCl (Tramadol 50 Mg Tab) 50 mg PO ONETIME ONE Stop: 01/21/21 23:36 Last Admin: 01/21/21 23:42 Dose: 50 mg Documented by: - Free Text/Narrative Note: I have seen and examined the patient. I have discussed findings and treatment plan with the resident. I agree with the assessment and plan outlined in the following note.
== END 2021-01-25 12:05 | disposition home or self-care (01) | DRG 177 ==
LOC: MW.ED 20:52 → MW.MS 01-22 00:17
PROVIDERS: ADMIT Student in an Organized Health Care Education/Training Program; ATTEND Student in an Organized Health Care Education/Training Program
PROC: XW033E5 Introduction of Remdesivir Anti-infective into Peripheral Vein, Percutaneous Approach, New Technology Group 5 (ICD-10-PCS; principal; 2021-01-22)
PROC: 3E0333Z Introduction of Anti-inflammatory into Peripheral Vein, Percutaneous Approach (ICD-10-PCS; 2021-01-22)
PROC: 3E0DX3Z Introduction of Anti-inflammatory into Mouth and Pharynx, External Approach (ICD-10-PCS; 2021-01-22)
PROC: 5A0935A Assistance with Respiratory Ventilation, Less than 24 Consecutive Hours, High Flow/Velocity Cannula (ICD-10-PCS; 2021-01-23)
DX: U07.1 COVID-19 (principal); J12.82 Pneumonia due to coronavirus disease 2019; J96.01 Acute respiratory failure with hypoxia; E66.9 Obesity, unspecified; I10 Essential (primary) hypertension
CPT/HCPCS: 36415; 71045; 71045-26; 80053; 82248; 84145; 85025; 86140; 87040; 93005; 94640; 99285-25; A9270-GY; C9113; J1100; J1650; J7050; J7620-GY; J8540; U0002

== ENCOUNTER 2023-10-11 15:46 | Emergency (ER) | payer OTHER ==
[2023-10-11] MEDS: Diazepam 5 MG Tab PO ONE (17:06)
[2023-10-11] MEDS: Ondansetron 4 MG Tab.DIS PO ONE (17:06)
[2023-10-11 17:19] LABS: BASOPHILS ABSOLUTE AUTO 0.04 K/uL (0.00-0.20); BASOPHILS PERCENT AUTO 0.6 % (0.0-1.0); EOSINOPHILS ABSOLUTE AUTO 0.19 K/uL (0.00-0.45); EOSINOPHILS PERCENT AUTO 2.8 % (0.0-6.0); HEMATOCRIT 35.5 % (37.0-47.0); HEMOGLOBIN 11.8 g/dL (12.0-16.0); IMMATURE GRAN ABSOLUTE AUTO 0.02 K/uL (0.00-0.05); IMMATURE GRAN PERCENT AUTO 0.3 % (0.0-0.4); LYMPHOCYTES ABSOLUTE AUTO 2.27 K/uL (1.00-4.80); LYMPHOCYTES PERCENT AUTO 33.9 % (24.0-44.0); MEAN CORPUSCULAR HEMOGLOBIN 30.8 pg (28.0-32.0); MEAN CORPUSCULAR HGB CONC 33.2 g/dL (32.0-36.0); MEAN CORPUSCULAR VOLUME 92.7 fL (83.0-99.0); MEAN PLATELET VOLUME 12.8 fL (9.4-12.3); MONOCYTES ABSOLUTE AUTO 0.68 K/uL (0.00-0.80); MONOCYTES PERCENT AUTO 10.1 % (0.0-8.0); NEUTROPHILS PERCENT AUTO 52.3 % (41.0-71.0); PLATELET COUNT,PLT 142 K/uL (150-400); RED BLOOD CELL COUNT 3.83 M/uL (4.10-5.30)
[2023-10-11 17:49] LABS: A/G RATIO 0.9 (0.9-1.6); ALBUMIN 3.4 g/dL (3.4-5.0); BILIRUBIN TOTAL 0.5 mg/dL (0.2-1.0); CALCIUM 8.7 mg/dL (8.5-10.1); CREATININE 0.8 mg/dL (0.6-1.0); EST CRCL DRUG DOSING (CG) 56.43 mL/min; POTASSIUM,K 3.9 mmol/L (3.5-5.1); PROTEIN TOTAL,TP 7.3 g/dL (6.4-8.2)
== END 2023-10-11 21:13 | disposition home or self-care (01) ==
LOC: MW.ED 15:46
DX: M79.651 Pain in right thigh (principal); E66.9 Obesity, unspecified; Z79.899 Other long term (current) drug therapy; Z68.32 Body mass index [BMI] 32.0-32.9, adult; V49.40XA Driver injured in collision with unspecified motor vehicles in traffic accident, initial encounter
CPT/HCPCS: 36415; 70450; 72125; 73030; 73130; 73502; 80053; 83690; 85025; 99284; A9270; 99283